=== PATIENT | male | born 1985 | race Hispanic/Latino ===

== ENCOUNTER 2024-04-21 13:15 | Emergency (ER) | payer SELFPAY ==
[2024-04-21 13:17] VITALS: BP 160/91
[2024-04-21 13:22] LABS: Glucose - Point of Care 310 mg/dl (70-99)
--- NOTE | 2024-04-21 13:44 | ED.CVA ---
History of Present Illness
<Rolf Baird Vandana DO - Last Filed: 04/21/24 13:45>
General
Chief Complaint: CVA/TIA Symptoms
Time Seen by Provider: 04/21/24 13:27
<Marleny Durant PA-C - Last Filed: 04/21/24 18:48>
General
Source: patient
Onset of Stroke Symptoms
Onset of symptoms known: Yes
Date of onset of symptoms: 04/18/24
History of Present Illness
History of Present Illness:
39yoM with a history of type 2 diabetes not on medications presenting for evaluation of left facial asymmetry. He first noticed these symptoms 3 days ago and symptoms have been constant since then. He reports a left facial droop as well as
difficulty closing his left eye. He is having some left facial and ear discomfort as well. He had some paresthesias in the left leg previously but denies any currently. He is otherwise asymptomatic and denies any headaches, visual changes,
dizziness, weakness, rashes. He was previously taking metformin but has not taken this in the past 2 years because he has been asymptomatic.
Phy Exam
<Marleny Durant PA-C - Last Filed: 04/21/24 18:48>
General Physical Exam
General Presentation: well appearing and no apparent distress
General age: appears stated age
General Skin: warm and dry
General Habitus: normal
General Mental: alert
General Hydration: appears well hydrated
Eye Exam
Eye Exam: PERRL, EOMI and visual koehler normal
Neurological Exam
Neurological Exam: alert and other (L facial asymmetry noted. Unable to elevate L eyebrow and L lid lag noted. CN 2-12 otherwise intact. PERRL. EOMs intact. 5/5 strength and gross sensation intact in all extremities. Negative drift x4. Normal finger
to nose and heel to barney bilaterally. )
Julia Coma Scale
Eye Opening: Spontaneous
Verbal Response: Oriented
Motor Response: Obeys Commands
GCS Total Score: 15
Skin Exam
Skin Exam: normal color and warm/dry
Psychiatric Exam
Psychiatric Exam: normal mood/affect
Course
<Rolf Ross DO - Last Filed: 04/21/24 13:45>
Orders/Labs/Results
Orders:
Orders
04/21/24 14:02
Lyme Progressive Urgent
Abnormal Lab Results
04/21/24
13:21
POC Glucose 310 H mg/dl
(70-99)
Vital Signs
Initial and Last Documented VS:
Initial Vital Signs
Temp Pulse Resp BP Pulse Ox
99.1 F 75 16 160/91 98
04/21/24 13:17 04/21/24 13:17 04/21/24 13:17 04/21/24 13:17 04/21/24 13:17
Last Documented Vital Signs
Temp Pulse Resp BP Pulse Ox
99.1 F 73 19 160/91 98
04/21/24 13:17 04/21/24 13:56 04/21/24 13:56 04/21/24 13:17 04/21/24 13:56
<Marleny Durant PA-C - Last Filed: 04/21/24 18:48>
Orders/Labs/Results
Orders:
Orders
04/21/24 14:02
Lyme Progressive Urgent
Abnormal Lab Results
04/21/24
13:21
POC Glucose 310 H mg/dl
(70-99)
Vital Signs
Initial and Last Documented VS:
Initial Vital Signs
Temp Pulse Resp BP Pulse Ox
99.1 F 75 16 160/91 98
04/21/24 13:17 04/21/24 13:17 04/21/24 13:17 04/21/24 13:17 04/21/24 13:17
Last Documented Vital Signs
Temp Pulse Resp BP Pulse Ox
99.1 F 73 19 160/91 98
04/21/24 13:17 04/21/24 13:56 04/21/24 13:56 04/21/24 13:17 04/21/24 13:56
<Marleny Durant PA-C - Last Filed: 04/21/24 18:48>
MDM/Problems Addressed
Differential Diagnosis Includes:
39yoM here with L facial droop x 3 days. Facial asymmetry noted on exam which affects the upper face/eyebrow. No other deficits on exam. Differential diagnosis includes but is not limited to: Patton's palsy, Lyme disease, viral infection, doubt CVA
Exam is consistent with [place] palsy. Patient also evaluated by Dr. Ross who agrees. Lyme testing sent. Fingerstick glucose is 310 here. Hx of T2DM noncompliant with metformin. Will prescribe low dose prednisone and Valtrex. Refill provided
for metformin. He was advised to f/u with the free clinic. ED return precautions discussed. He expressed understanding and is agreeable to plan. Patient discharged in stable condition.
<Marleny Durant PA-C - Last Filed: 04/21/24 18:48>
*Critical Care Note
Total Time (30-74mins, 75-104mins- exclusive of procedures): Not Applicable
ED Attending Note
<Rolf Ross DO - Last Filed: 04/21/24 13:45>
ED Attending Note
Patient seen and examined by attending physician: Yes
I performed the substantive portion of visit, reviewed & personally made and approve the management plan that is documented in note by myself or CLAUDIA.: Yes
I performed a history and physical exam of patient and discussed management with resident, I reviewed resident's note and agree with documented findings and plan of care.: Yes
ED Attending Note:
I evaluated the patient bedside. The patient has left upper lid lag and facial asymmetry consistent with Patton's palsy. Although he had some earlier left lower extremity paresthesias, he has excellent strength and no other ongoing extremity
involvement. He is noncompliant with metformin but I still recommend giving at least a lower dose steroid and will also start Valtrex.
-
Portions of this chart may have been created with voice recognition software.� Occasional wrong word or��sound alike� substitutions may have occurred due to the inherent limitations of voice recognition software.
Discharge Plan
Departure
Patient Disposition: Home (Routine Discharge)
Date of Disposition: 04/21/24
Time of Disposition: 14:00
Patient with high blood pressure during this ER visit?: Yes
Discharge Problem:
Left-sided Patton's palsy
Instructions: Patton's Palsy (DC)
Prescriptions:
New
metformin 500 mg tablet
500 mg PO BID Qty: 60 0RF
prednisone 20 mg tablet
20 mg PO DAILY Qty: 7 0RF
valacyclovir [Valtrex] 1 gram tablet
1,000 mg PO Q8H Qty: 21 0RF
Referrals:
[facility] [Provider Group[facility] [Outside]
NONE,* [Family Provider] -
Activity Restrictions/Additional Instructions:
Take prednisone and Valtrex as prescribed. Start taking metformin again. Use an eye patch while you sleep to cover your left eye.
Please follow-up with the clinic. Return to the ER with any new or worsening symptoms.
Interventions
Interventions:
*Risk Screen - Suicide Last Done: 04/21/24 13:17
*Neglect/Abuse Screening Last Done: 04/21/24 13:17
ED- Fall Risk Assessment Last Done: 04/21/24 14:03
*Nursing Disposition Last Done: 04/21/24 14:12
ED- Pulmonary Assessment Last Done: 04/21/24 14:03
ED- Neurological Assessment Last Done: 04/21/24 14:03
ED- Cardiac Assessment Last Done: 04/21/24 14:03
ED Swallowing Screen Last Done: 04/21/24 14:03
Discharge Date and Time
Discharge Date/Time: 04/21/24 14:14
Print Language: CITIZEN OF [place]
[2024-04-25 15:14] LABS: Lyme Antibody Screen, EIA Negative (Negative)
== END 2024-04-21 14:14 | disposition home or self-care (01) ==
LOC: EMR 13:15
PROVIDERS: Physician Assistant; EMERGENCY PHYSICIAN Emergency Medicine
DX: G51.0 Bell's palsy (principal); E11.9 Type 2 diabetes mellitus without complications
CPT/HCPCS: 99282; 82962; 86618

== ENCOUNTER 2024-08-09 04:41 | Inpatient (IN) | payer OTHER, SELFPAY ==
[2024-08-08 23:29] VITALS: BP 158/104
[2024-08-08 23:38] LABS: Glucose - Point of Care 238 mg/dl (70-99)
[2024-08-09] VITALS (18 sets, daily range): BP systolic 109–134; BP diastolic 68–86; BMI 25.2; BMI 28.4
[2024-08-09 00:24] LABS: ALT (SGPT) 19 U/L (0-50); AST (SGOT) 19 U/L (17-59); Albumin 4.4 g/dl (3.5-5.0); Alkaline Phosphatase 108 U/L (38-126); Blood Urea Nitrogen 13 mg/dl (9-20); Calcium 8.7 mg/dl (8.4-10.2); Carbon Dioxide 16 mmol/L (22-30); Chloride 101 mmol/L (98-107); Glucose 240 mg/dl (70-99); Potassium 4.4 mmol/L (3.5-5.1); Sodium 135 mmol/L (135-145); Total Bilirubin 0.7 mg/dl (0.2-1.3); Total Protein 8.3 g/dl (6.3-8.2); eGFR > 60.00
[2024-08-09 01:21] LABS: Red Blood Cell Count 4.87 10^6/uL (4.70-6.10); White Blood Cell Count 13.2 10^3/uL (4.8-10.8)
[2024-08-09 01:23] LABS: Red Cell Dist. Width 13.1 % (11.5-14.5)
[2024-08-09 01:24] LABS: Mean Platelet Volume 12.1 fL (7.4-10.4); Platelet Count 229 10^3/uL (130-400)
[2024-08-09 01:25] LABS: % Basophils 0.2 % (0-2); % Eosinophils 0.2 % (0-6); % Immature Granulocytes 0.5 % (0-0.5); % Lymphocytes 12.7 % (20.5-51.1); % Monocytes 3.9 % (1.7-9.3); % Neutrophils 82.5 % (42.2-75.2); Absolute Immature Granulocytes 0.1 10^3/uL (0-0.05); Absolute Lymphocytes 1.7 10^3/uL (1.2-3.4); Absolute Monocytes 0.5 10^3/uL (0.1-0.6); Absolute Neutrophils 10.9 10^3/uL (1.4-6.5); Nucleated Red Blood Cells % 0.2 % (-)
--- NOTE | 2024-08-09 01:25 | ED.GENMED ---
History of Present Illness
General
Chief Complaint: Abdominal Pain
Source: patient
Exam Limitations: none
Time Seen by Provider: 08/09/24 01:20
History of Present Illness
History of Present Illness:
Patient started 2 to 3 days ago with headache. Developed abdominal pain today. Points to the right side of his abdomen. No nausea or vomiting no fever. Ran out of his diabetic medication months ago. No flank pain dysuria frequency etc. Some
decreased appetite.
Past History
Past History
ED Past Medical History: NIDDM
Review of Systems
Review of Systems
All Other Systems: Not applicable
Constitutional: Denies fever or chills
Respiratory: Reports no symptoms
Cardiac: Reports no symptoms
: Reports no symptoms
Phy Exam
Physical Exam
Physical Exam:
GENERAL: Alert and oriented in no apparent distress
EYE: Orbits normal.
NECK: Supple, no significant adenopathy.
ENT: Pharynx without erythema
CARDIAC: Regular rate and rhythm without any obvious murmurs.
LUNGS: Clear breath sounds,normal
ABDOMEN: Soft, mild right upper quadrant/mild right lower quadrant tenderness. No rebound or guarding no mass or hernia. No CVA tenderness
NEUROLOGICAL: Alert and oriented , grossly non-focal
SKIN: Warm and dry, no rash or lesion, no discoloration, skin intact.
MUSCULOSKELETAL: No edema,no deformity.Good color
PSYCH: Normal and appropriate interaction.
Course
Orders/Labs/Results
Orders:
Orders
08/08/24 23:33
Accucheck Once [Bedside Glucose Monitoring-ONCE] As Directed
08/08/24 23:40
B-Hydroxybutyrate Urgent
Comment: ADD ON
Complete Blood Count/With Diff Urgent
Comprehensive Metabolic Panel Urgent
Lipase Urgent
Comment: ADDED
08/09/24 01:21
Add On- LAB Urgent
Tests Added?: beta hydroxybutrate
08/09/24 01:25
CT Abd/Pel (IV only)-DH only Urgent
Comment:
Reason For Exam: Right lower quadrant abdominal pain
0.9% Sodium Chloride 1000 ml [Nss] 1,000 ml IV BOLUS
US Abdomen Limited Urgent
Comment:
Reason For Exam: Right upper quadrant abdominal pain
08/09/24 01:54
COVID-19 Antigen Urgent
Source: Nasal Swab
Urinalysis Reflex To Culture Urgent
Date Specimen was Collected: 08/09/24
Time Specimen was Collected: 01:43
Urine Microscopic Reflex Cult Urgent
Influenza A+B Rapid Molecular Urgent
CAROLE Source: Nasal Swab
Specimen Description:
Urine Culture Urgent
CAROLE Source: U
Specimen Description:
Date Specimen was Collected: 08/09/24
Time Specimen was Collected: 01:43
08/09/24 03:14
Add On- LAB Urgent
Tests Added?: lipase
08/09/24 03:18
0.9% Sodium Chloride 1000 ml [Nss] 1,000 ml IV BOLUS
08/09/24 04:23
Admit/Transfer Patient As Directed
Co-Sign Provider:
Level of Care: Inpatient admission
Assign to:: IMU- Intermediate Care
Physician / Group: hospitalist
Diagnosis: pancreatitis
Reason for Hospitalization: pancreatitis
Expected length of stay greater than two midnights?: Yes
ELOS- Estimated Length of Stay in days: 2
I certify the patient meets the requirements for IP care: Yes
08/09/24 04:24
PRN Pain Medication Management As Directed
May give lesser potent ordered pain med per pt: Yes
preference::
Protocol:: Medication orders for pain may be administered in a
manner that supports deferring to patient preference
when the pt is:
- Requesting an ordered lesser potent pain medication.
Least to most potent pain medications are defined
as: acetaminophen < NSAID < tramadol < opioids
(morphine, oxycodone, hydromorphone).
- Requesting a lesser dose of the same medication IF
ORDERED.
- Requesting a less intrusive route of administration
if both routes are prescribed by the provider (PO <
IV).
08/09/24 04:25
Code Status As Directed
Resuscitation Status: Full Code
08/09/24 Breakfast
Clear Liquid
At Your Request: Full Participation
08/09/24 07:05
Acetaminophen [Tylenol] 650 mg PO Q6HPRN PRN
HYDROmorphone [Dilaudid] 0.5 mg IV Q4HPRN PRN
Ketorolac [Toradol] 15 mg IV Q6HPRN PRN
Ondansetron Injectable [Zofran] 4 mg IV Q6HPRN PRN
08/09/24 07:05
Consult Notification Routine
Specialty to Notify: Gastroenterology
Date consulting provider notified: 08/09/24
Time consulting provider notified: 07:30
Notified:: Provider
Comment: via TT
GASTROINTESTINAL CONSULT Routine
Consulting Provider: Adele Mata
Was physician already notified: No
Reason for consult: acute pancreatitis with unknown etiology
Activity As Directed
Activity Level: With Assistance
Intake/ Output As Directed
Frequency: Per unit guidelines
Notify MD As Directed
Notify physician if: Nurse to contact provider when glucose reaches 250 to obtain orders for D5 0.45 NaCl
Vital Signs As Directed
Frequency: Per unit guidelines
DX Deep Vein Thrombosis Video Routine
08/09/24 18:00
Enoxaparin Sodium [Lovenox] 40 mg SC QPM
Abnormal Lab Results
08/08/24 08/08/24 08/09/24
23:37 23:40 01:54
WBC 13.2 H 10^3/uL
(4.8-10.8)
MPV 12.1 H fL
(7.4-10.4)
Abs Immat Gran (auto) 0.1 H 10^3/uL
(0-0.05)
Absolute Neuts (auto) 10.9 H 10^3/uL
(1.4-6.5)
Neutrophils % 82.5 H %
(42.2-75.2)
Lymphocytes % 12.7 L %
(20.5-51.1)
Carbon Dioxide 16 L mmol/L
(22-30)
Creatinine 0.5 L mg/dL
(0.7-1.3)
Glucose 240 H mg/dl
(70-99)
Total Protein 8.3 H g/dl
(6.3-8.2)
Lipase 451 H U/L
(23-300)
Urine Ketones 3+ A
(Negative)
Urine Bacteria (Reflex) Many A
(Negative)
Urine Glucose 3+ A
(Negative)
Urine Albumin (Reflex) 1+ A
(Neg - Trace)
B-Hydroxybutyrate 1.30 H mmol/L
(0.02-0.27)
POC Glucose 238 H mg/dl
(70-99)
08/08/24 23:40
08/08/24 23:40
Vital Signs
Initial and Last Documented VS:
Initial Vital Signs
Temp Pulse Resp BP Pulse Ox
97.8 F 96 20 158/104 99
08/08/24 23:29 08/08/24 23:29 08/08/24 23:29 08/08/24 23:29 08/08/24 23:29
Last Documented Vital Signs
Temp Pulse Resp BP Pulse Ox
98.9 F 96 17 128/83 96
08/13/24 12:30 08/13/24 15:00 08/13/24 09:00 08/13/24 14:05 08/13/24 09:45
MDM/Problems Addressed
Differential Diagnosis Includes:
Differential would include gallbladder, appendicitis, DKA although unlikely, viral syndrome. Workup in progress
*Pulse Oximetry
Patient hypoxic: no
*Critical Care Note
Total Time (30-74mins, 75-104mins- exclusive of procedures): Not Applicable
Data Reviewed
Review of Other/Old Records Reveals: Labs
ED Attending Note
-
Portions of this chart may have been created with voice recognition software.� Occasional wrong word or��sound alike� substitutions may have occurred due to the inherent limitations of voice recognition software.
Discharge Plan
Departure
Patient Disposition: Admit
Date of Disposition: 08/09/24
Time of Disposition: 03:18
Presentation/result/management discussed w/ accepting MD/DO: Hospitalist
Discharge Problem:
Pancreatitis, Possible mild DKA
Interventions
Interventions:
*Risk Screen - Suicide Last Done: 08/09/24 01:11
*General Assessment Last Done: 08/09/24 01:11
*Neglect/Abuse Screening Last Done: 08/09/24 01:11
ED- Fall Risk Assessment Last Done: 08/09/24 08:10
*ED COVID-19 Vaccine History Last Done: 08/09/24 01:11
*Nursing Disposition Last Done: 08/09/24 13:58
[facility] Assessment Last Done: 08/09/24 08:10
ED- Neurological Assessment Last Done: 08/09/24 08:10
Discharge Date and Time
Discharge Date/Time: 08/09/24 13:45
[2024-08-09 01:28] LABS: Hematocrit 41.6 % (39.0-52.0); Hemoglobin 14.7 g/dL (13.0-18.0); Mean Corp Hgb Conc. 35.3 g/dL (33.0-37.0); Mean Corpuscular Hgb 30.2 pg (27.0-31.0); Mean Corpuscular Volume 85.4 fL (80.0-94.0)
[2024-08-09] MEDS: NSS 1000 IV ×2 (01:52→03:24)
[2024-08-09 02:06] LABS: Urine Albumin 1+ (Neg - Trace); Urine Bilirubin Negative (Negative); Urine Character Clear (Clear); Urine Color Yellow; Urine Glucose 3+ (Negative); Urine Ketone 3+ (Negative); Urine Leukocyte Negative (Negative); Urine Nitrite Negative (Negative); Urine Occult Blood Negative (Negative); Urine Specific Gravity 1.025 (<1.030); Urine Urobilinogen Negative (Neg - 1+)
[2024-08-09 02:15] LABS: Urine Amorphous Seen; Urine Granular Cast 0-2 /LPF (0); Urine Squamous Cell 16-20 /LPF (Few)
[2024-08-09 02:16] LABS: Urine Bacteria Many (Negative); Urine Mucus Moderate; Urine Red Blood Cell 0-2 /HPF (0-2)
[2024-08-09 02:19] LABS: COVID-19 Antigen Negative (Negative)
[2024-08-09 03:33] LABS: Lipase 451 U/L (23-300)
--- NOTE | 2024-08-09 04:11 | HPS.HSE ---
Family Physician
-
Family Physician: * NONE
Chief Complaint
-
Abdominal pain.
History of Present Illness
This is a 39-year-old male with past medical history of diabetes not currently on any medications due to inability to obtain who presents to the emergency department with onset of abdominal pain today.
Patient reports that he had headache starting about 5 days ago pointing to the confucianism the frontal area and behind his eyes. He denies any nasal congestion. He denies any rhinorrhea sore throat cough or wheezing. He denies any fevers or chills.
He states that the abdominal pain developed today and localized to the right upper quadrant. Has been no fevers or chills. He denies any vomiting denies nausea. He denies any urinary symptoms. He is reporting some decreased p.o. intake.
Patient was recently seen in the emergency department for your diabetes. He was diagnosed with diabetes several years ago. He was was placed on metformin at that time but has ran out due to inability to follow-up with a provider and inability to
refill the prescription.
In the emergency department he was afebrile, blood pressure was normal at 1 130/80 with a pulse of 88 satting 98% on room air. He had a white count of 13,000 but CBC was otherwise unremarkable. Electrolytes were stable except for a bicarb of 16,
BUN/creatinine with normal glucose was 240. The anion gap was 18. He does have elevated with hydroxybutyrate. UA was positive for ketones. LFTs were normal, lipase was elevated over 400. CT of the abdomen and pelvis shows mild inflammatory
stranding surrounding the pancreas compatible with pancreatitis. No significant other abnormalities noted, no stones visualized in the gallbladder or bile duct.
Abdominal ultrasound shows that the liver and gallbladder and visualized biliary system were unremarkable. No gallstones or sonographic Alexis sign.
Medical History
Past Medical History
Past Medical History: Reports NIDDM
Past Surgical History: Reports None
Social History
Tobacco: Non-smoker
Alcohol: None
Drug: None
Personal:
Living: With Family
Employment: Employed
Family History
Family History: Not pertinent
Allergies / Home Medications
Allergies reflects when Allergies were last updated in [facility].
Home Medications with original date entered in [facility]
Allergy/Medication List:
Allergies
Allergy/AdvReac Type Severity Reaction Status Date / Time
No Known Allergies Allergy Unverified 04/21/24 13:20
Home Medications
metformin 500 mg tablet 500 mg PO BID #60 tabs 04/21/24
prednisone 20 mg tablet 20 mg PO DAILY #7 tabs 04/21/24
valacyclovir 1 gram tablet (Valtrex) 1,000 mg PO Q8H #21 tabs 04/21/24
Review of Systems
-
History Source: Patient
Constitutional: Reports No Symptoms
EENT: Reports No Symptoms
Respiratory: Reports No Symptoms
Cardiac: Reports No Symptoms
Abdomen/GI: Reports Abdominal Pain
: Reports No Symptoms
Musculoskeletal: Reports No Symptoms
Skin: Reports No Symptoms
Neurological: Reports Headache
Endocrine: Reports No Symptoms
Hematologic/Lymphatic: Reports No Symptoms
Psych: Reports No Symptoms
Physical Exam
Vital Signs
Vital Signs
Temp Pulse Resp BP Pulse Ox
97.8 F 78 24 117/77 97
08/08/24 23:29 08/09/24 04:00 08/09/24 04:00 08/09/24 04:00 08/09/24 04:00
Physical Exam
General: Well Developed, Well Nourished, No Apparent Distress and Comfortable
HEENT: NormoCephalic, Anicteric, Moist mucous membranes and Atraumatic
Respiratory: Clear
Cardiac: S1/S2 and Regular Rhythm
GI: Soft, Non Distended, Normal Bowel Sounds and Tender
Rectal: Deferred by Provider
Genito-urinary: Deferred by me
Musculoskeletal: No Clubbing, No Cyanosis and No Edema
Neuro: AO x 3 and Nonfocal/grossly intact
Psych: Calm
Laboratory Results
-
08/08/24 23:40
08/08/24 23:40
Laboratory Results
Total Bilirubin 0.7 mg/dl (0.2-1.3) 08/08/24 23:40
AST 19 U/L (17-59) 08/08/24 23:40
ALT 19 U/L (0-50) 08/08/24 23:40
Alkaline Phosphatase 108 U/L (38-126) 08/08/24 23:40
Lipase 451 U/L (23-300) H 08/08/24 23:40
Data Reviewed
-
CT Scan: Report Reviewed by me
Lab Data: Labs Reviewed by me
Old Records: Reviewed
Impression/Plan
-
IMPRESSION:
39-year-old with pancreatitis and mild DKA.
PLAN:
Pancreatitis - No etoh, no gall stones, billiary ductal dilation or abnormal lfts. No h/o gallstones. No medications or trauma. Non-insulin dependent diabetes. Mildly fatty liver
- etiology uncertain as he denies etoh and has no evidence of gallstones, trauma, procedures or medications. No significant anatomic findings. No family hx. ?viral, aip versus anatomic.
- check triglycerides, blood samples appear lipid enriched.
- pain control, iv fluids and antiemetics
- may need further investigation, no known family hx, consider EUS or MRCP. GI consultation
DKA - Mild DKA. Was not taking metformin. GAP 18, + urinary ketones and elevated beta hydroxybutyrate. No significant dehydration. Improved after IV fluids and gap closed
- sliding scale insulin
- restart metformin after 48 hours when tolerating po and on discharge with follow up in diabetic clinic
- no need for insulin gtt for dka, but may need insulin for hypertriglycerides.
- admit placed for imu for now pending trig levels
DVT PPx - lovenox sq
Code status - full code
[2024-08-09 05:21] LABS: Glucose - Point of Care 179 mg/dl (70-99)
[2024-08-09 05:55] LABS: Hematocrit 35.4 % (39.0-52.0); Hemoglobin 13.1 g/dL (13.0-18.0); Mean Corpuscular Hgb 31.9 pg (27.0-31.0); Mean Corpuscular Volume 86.1 fL (80.0-94.0); Mean Platelet Volume 11.4 fL (7.4-10.4); Platelet Count 167 10^3/uL (130-400); Red Blood Cell Count 4.11 10^6/uL (4.70-6.10); Red Cell Dist. Width 13.2 % (11.5-14.5); White Blood Cell Count 10.1 10^3/uL (4.8-10.8)
[2024-08-09 06:25] LABS: ALT (SGPT) 16 U/L (0-50); AST (SGOT) 24 U/L (17-59); Albumin 3.7 g/dl (3.5-5.0); Alkaline Phosphatase 77 U/L (38-126); Blood Urea Nitrogen 11 mg/dl (9-20); Calcium 7.7 mg/dl (8.4-10.2); Carbon Dioxide 20 mmol/L (22-30); Chloride 105 mmol/L (98-107); Direct Bilirubin 0.6 mg/dl (0.0-0.4); Glucose 176 mg/dl (70-99); Sodium 135 mmol/L (135-145); Total Protein 6.9 g/dl (6.3-8.2); eGFR > 60.00
[2024-08-09 07:17] LABS: Triglycerides > 2625 mg/dl (10-149)
[2024-08-09] MEDS: LR 1000 IV (08:07)
[2024-08-09 09:01] LABS: Glucose - Point of Care 202 mg/dl (70-99)
[2024-08-09] MEDS: NOVOLOG FLEXPEN-LOW RESISTANCE 2 UNITS SC (09:38)
[2024-08-09] MEDS: TORADOL 15 MG IV ×2 (09:45→21:10)
[2024-08-09] MEDS: NOVOLIN R INSULIN INFUSION 100 IV ×2 (10:30→20:42)
[2024-08-09 10:32] LABS: Glucose - Point of Care 292 mg/dl (70-99)
[2024-08-09] MEDS: D5LR 1000 IV (10:36)
[2024-08-09 11:37] LABS: Glucose - Point of Care 248 mg/dl (70-99)
--- NOTE | 2024-08-09 11:53 | CON.GI ---
Consultation
-
Date/Time Consultation Requested: 08/09/2024
Date/Time Consultation Performed: 08/09/2024
Requesting Provider: Hospitalist
Performing Provider: Cholo XAVIER
Reason for Consultation: Pancreatitis
Medical History
Chief Complaint / HPI
Chief Complaint: Abdominal pain
History of Present Illness:
39-year-old male with history of diabetes not on any treatment at present admitted to ED complaining of right upper quadrant abdominal pain for 1 day. No associated nausea or vomiting. No pain radiation. No fever or chills. In ED labs
leukocytosis with WBC 13,000. Liver tests were normal. Lipase was 451. CT abdomen/pelvis with IV only suggestive of pancreatitis/fatty liver
Past Medical History
Past Medical History: Other (DM)
Past Surgical History: None
Social History
Tobacco: Non-Smoker
Alcohol: None
Drug: None
Allergies / Home Medications
Allergy/AdvReac Type Severity Reaction Status Date / Time
No Known Allergies Allergy Unverified 04/21/24 13:20
�Medication �Instructions �Recorded
metformin 500 mg tablet 500 mg PO BID #60 tabs 04/21/24
Review of Systems
-
All other systems: A 12 pt ROS was Negative except as stated above in HPI
Vital Signs
Temp Pulse Resp BP Pulse Ox
99.2 F 87 23 121/73 96
08/09/24 08:10 08/09/24 11:00 08/09/24 11:00 08/09/24 11:00 08/09/24 08:15
Physical Exam
Exam
General: Well Developed, Well Nourished and No Apparent Distress
Respiratory: Clear
Cardiac: S1/S2
GI: Soft, Non Distended and Tender (Mild epigastric tenderness on deep palpation)
Neuro: AO x 3
Results
WBC Cancelled 08/09/24 08:00
Hgb Cancelled 08/09/24 08:00
Hct Cancelled 08/09/24 08:00
MCV Cancelled 08/09/24 08:00
Plt Count Cancelled 08/09/24 08:00
Absolute Neuts (auto) 10.9 10^3/uL (1.4-6.5) H 08/08/24 23:40
Sodium 135 mmol/L (135-145) 08/09/24 05:43
Potassium 4.0 mmol/L (3.5-5.1) 08/09/24 09:31
Chloride 105 mmol/L (98-107) 08/09/24 05:43
Carbon Dioxide 20 mmol/L (22-30) L 08/09/24 05:43
BUN 11 mg/dl (9-20) 08/09/24 05:43
Creatinine 0.4 mg/dL (0.7-1.3) L 08/09/24 05:43
Calcium 7.7 mg/dl (8.4-10.2) L 08/09/24 05:43
Total Bilirubin 1.0 mg/dl (0.2-1.3) 08/09/24 05:43
AST 24 U/L (17-59) 08/09/24 05:43
ALT 16 U/L (0-50) 08/09/24 05:43
Alkaline Phosphatase 77 U/L (38-126) 08/09/24 05:43
Lipase 451 U/L (23-300) H 08/08/24 23:40
Diagnostic Image Results:
Ultrasound abdomen 08/09/2024�normal. No biliary dilatation
CT abdomen/pelvis 08/09/2024
IMPRESSION:
1). Pancreatitis
2). Hepatomegaly with diffuse fatty infiltration of the liver
Prior GI Procedures:
EGD: none
Colonoscopy: none
Assessment / Plan
-
39-year-old male with history of diabetes currently not on any medication is admitted with right upper quadrant abdominal pain for 1 day.
-- Acute pancreatitis-secondary to hypertriglyceridemia ( TG > 2625 ). First episode. ( No ETOH/ LFT normal / Imaging no biliary dilatation )
-- DM/ DKA ( not on Rx for DM because of no insurance)
-- Fatty liver - likely secondary to MASH
plan
N.p.o.
Continue insulin drip until triglyceride < 500
Continue IV fluid
Pain management as per medical team
Pharmacological treatment for triglyceridemia to be initiated once patient can tolerate oral intake
Discussed with patient that patient needs to be on dietary fat restriction and pharmacological treatment for triglyceridemia in the future to prevent recurrence of pancreatitis
Patient requires follow-up with PCP on discharge for management of diabetes/hyperlipidemia - medical team/ professor of social work to arrange follow up
plan discussed with hospitalist
Total Time Spent with Patient (in minutes): 55
-
-
Thank you for consultation and allowing me to participate in the patient's care. Please call the quality control operator GI physician during the after hours with any questions or concerns.
--- NOTE | 2024-08-09 12:41 | W.PN.HOSP.TC ---
Today's Communication/Plan
-
Insulin drip
BMP every 4 hours, TG level every 8 hours
D5LR, replete K and Phos as needed
TG goal <500
Follow-up A1c
CLD for now
Assessment / Plan
Assessment / Plan
#Acute pancreatitis
#Hypertriglyceridemia
-Presented with abdomen pain, elevated lipase, CT with signs of pancreatitis, TG >2000
-Unclear cause for his elevated TG level, denies alcohol use, denies family history of high cholesterol
-Has remained hemodynamically stable, relatively low modified Remigio score
-No signs of biliary disease or gallstones on imaging
-GI following
Plan
-Start insulin drip at 7 units/h, trend BMP Q4H, TG Q8H
-Plan to discontinue insulin drip when TG <500
-Replete potassium and phosphorus as needed for protocol
-Start D5 LR for maintenance fluids to prevent hypoglycemia
-Hematocrit goal <44%, trend BUN
-Initiate statin therapy, consider fenofibric acid
#Mild DKA
#H/O NIDDM
-No recent A1c; no history of microvascular disease states
-Home medications included metformin twice daily, nonadherent due to no insurance
-Presented with hyperglycemia, AGMA, elevated BHB consistent with mild DKA versus HHS
Plan
-Started on insulin drip as above, will DC at TG < 500
-Order A1c to assess need for standing insulin regimen
-Plan to transition to Lantus 10 units when insulin drip done
-Plan to resume metformin +/- additional agents
-Statin as above for ASCVD prevention
DVT prophylaxis: Lovenox
Diet: CLD, ADAT
CODE STATUS: Full
Anticipated Discharge: 24 - 48 hours
Subjective/Interval History
-
Date of Service: August 09, 2024
Seen and examined at the bedside. No acute events reported overnight. AFVSS this
Morning triglycerides did come back significantly elevated >2000. Patient denies history of hyperlipidemia, family history of hypertriglyceridemia, recent alcohol use
States he is feeling better but still has abdomen pain. Denies any new complain
Objective Data
-
Labs:
Laboratory Results
08/08/24 08/09/24 08/09/24
23:40 05:43 08:00
WBC 13.2 H 10.1 Cancelled
Hgb 14.7 13.1 Cancelled
Hct 41.6 35.4 L Cancelled
Plt Count 229 167 D Cancelled
Sodium 135
Potassium
Chloride 105
Carbon Dioxide 20 L
BUN 11
Creatinine 0.4 L
Glucose 176 H
Calcium 7.7 L
Total Bilirubin 1.0
AST 24
ALT 16
Alkaline Phosphatase 77
08/09/24 08/09/24 08/09/24
08:52 09:31 12:00
WBC
Hgb
Hct
Plt Count
Sodium Pending
Potassium Cancelled 4.0 Pending
Chloride Pending
Carbon Dioxide Pending
BUN Pending
Creatinine Pending
Glucose Pending
Calcium Pending
Total Bilirubin
AST
ALT
Alkaline Phosphatase
08/09/24 08/09/24
16:00 20:00
WBC
Hgb
Hct
Plt Count
Sodium Pending Pending
Potassium Pending Pending
Chloride Pending Pending
Carbon Dioxide Pending Pending
BUN Pending Pending
Creatinine Pending Pending
Glucose Pending Pending
Calcium Pending Pending
Total Bilirubin
AST
ALT
Alkaline Phosphatase
Vital Signs:
Vital Signs
Temp Pulse Resp BP Pulse Ox
99.2 F 87 23 121/73 96
08/09/24 08:10 08/09/24 11:00 08/09/24 11:00 08/09/24 11:00 08/09/24 08:15
Review of Systems
-
History Source: Patient
All other systems: Reviewed and negative
Physical Exam
-
General: Well Developed, Well Nourished, No Apparent Distress and Comfortable
HEENT: Normocephalic, Atraumatic, Moist Mucous Membranes and Anicteric
Respiratory: Clear to Auscultation and Non Labored Respirations
Cardiac: Regular Rhythm and S1/S2; Negative Murmur, Rub or Gallop
GI: Soft, Nondistended, Normal Bowel Sounds and Tender (Mild, mid right abdomen; no peritoneal sign)
Musculoskeletal: No Clubbing, No Cyanosis and No Edema
Skin: Warm and Dry; Negative Rash
Neuro: AO x 3 and Nonfocal/Grossly Intact; Negative Tremors
Psych: Calm
Data Reviewed
-
Labs: Labs Reviewed by me, Discussed with Physician (Gastroenterology) and Discussed with Patient
[2024-08-09 12:44] LABS: Glucose - Point of Care 208 mg/dl (70-99)
[2024-08-09 13:01] LABS: Blood Urea Nitrogen 11 mg/dl (9-20); Calcium 7.9 mg/dl (8.4-10.2); Carbon Dioxide 23 mmol/L (22-30); Chloride 102 mmol/L (98-107); Estimated Creatinine Clearance > 125 ml/min; Glucose 204 mg/dl (70-99); Phosphorus 2.5 mg/dl (2.5-4.5); Potassium 3.5 mmol/L (3.5-5.1); Sodium 135 mmol/L (135-145); eGFR > 60.00
--- NOTE | 2024-08-09 13:10 | EDRN ---
Report called to RN. Camille Hogue Pharmacist tristan texting for potassium replacement.
[2024-08-09 14:06] LABS: Glucose - Point of Care 175 mg/dl (70-99)
[2024-08-09 14:25] LABS: Glycohemoglobin (HgbA1c) 12.8 % (4.0-5.6)
--- NOTE | 2024-08-09 14:30 | PTCARENOTE ---
Patient received from the ED. Patient was able to ambulate to the bed from the stretcher. Currently has Fluids and Insulin gtt running at 7mL/hr per order with no titration as it is for Triglyceride level. Admission questions done. Oriented to
room. Skin assessment performed, scabbed area on back on head. Call salamanca in reach.
[2024-08-09] MEDS: KCL 270 MEQ IV (14:48)
[2024-08-09 15:13] LABS: Glucose - Point of Care 122 mg/dl (70-99)
[2024-08-09 16:15] LABS: Glucose - Point of Care 176 mg/dl (70-99)
[2024-08-09 17:03] LABS: Blood Urea Nitrogen 9 mg/dl (9-20); Calcium 7.9 mg/dl (8.4-10.2); Carbon Dioxide 24 mmol/L (22-30); Chloride 103 mmol/L (98-107); Estimated Creatinine Clearance > 125 ml/min; Glucose 139 mg/dl (70-99); Phosphorus 3.5 mg/dl (2.5-4.5); Sodium 135 mmol/L (135-145); eGFR > 60.00
[2024-08-09] MEDS: D5LR IV (17:03)
[2024-08-09 17:14] LABS: Glucose - Point of Care 112 mg/dl (70-99)
[2024-08-09 17:28] LABS: Triglycerides 2450 mg/dl (10-149)
[2024-08-09] MEDS: LIPITOR 40 MG PO (18:00)
[2024-08-09] MEDS: LOVENOX 40 MG SC (18:00)
[2024-08-09] MEDS: KCL 1010 MEQ IV (18:11)
[2024-08-09 18:16] LABS: Glucose - Point of Care 61 mg/dl (70-99)
[2024-08-09 19:03] LABS: Glucose - Point of Care 196 mg/dl (70-99)
[2024-08-09 20:12] LABS: Glucose - Point of Care 192 mg/dl (70-99)
[2024-08-09 20:38] LABS: Blood Urea Nitrogen 9 mg/dl (9-20); Calcium 8.2 mg/dl (8.4-10.2); Carbon Dioxide 23 mmol/L (22-30); Chloride 103 mmol/L (98-107); Estimated Creatinine Clearance > 125 ml/min; Glucose 194 mg/dl (70-99); Phosphorus 3.4 mg/dl (2.5-4.5); Potassium 4.3 mmol/L (3.5-5.1); Sodium 134 mmol/L (135-145); eGFR > 60.00
[2024-08-09 21:10] LABS: Glucose - Point of Care 165 mg/dl (70-99)
[2024-08-09 22:13] LABS: Glucose - Point of Care 169 mg/dl (70-99)
--- NOTE | 2024-08-09 22:17 | PTCARENOTE ---
assumed care of patient from previous RN. Patient is Aox3 and NSR on monitor. Insulin gtt running at 7 units, Q1 hour glucose check. Patient reported 7/10 abdominal pain, see MAR. Assessment and VS as documented. Call salamanca in reach.
[2024-08-09 23:13] LABS: Glucose - Point of Care 141 mg/dl (70-99)
[2024-08-10] VITALS (11 sets, daily range): BP systolic 107–133; BP diastolic 66–79
[2024-08-10 00:09] LABS: Glucose - Point of Care 122 mg/dl (70-99)
[2024-08-10] MEDS: KCL 1010 MEQ IV ×3 (00:12→14:46)
[2024-08-10 02:00] LABS: Blood Urea Nitrogen 7 mg/dl (9-20); Calcium 8.2 mg/dl (8.4-10.2); Carbon Dioxide 24 mmol/L (22-30); Chloride 105 mmol/L (98-107); Estimated Creatinine Clearance > 125 ml/min; Glucose 99 mg/dl (70-99); Phosphorus 3.3 mg/dl (2.5-4.5); Potassium 3.8 mmol/L (3.5-5.1); Sodium 137 mmol/L (135-145); eGFR > 60.00
[2024-08-10 02:08] LABS: Glucose - Point of Care 119 mg/dl (70-99)
--- NOTE | 2024-08-10 02:08 | DOWNTIME ---
There was a [employer]ing [employer] Executive Downtime on 08/10/2024 from 0100 to 08/10/2023 at 0205 . Downtime documentation of patient's care, including medication administrations, has been reconciled in the electronic record per guidelines. Refer to the
patient's paper chart under the miscellaneous tab to see printed paper medication records and downtime forms.
[2024-08-10 02:14] LABS: Triglycerides 1944 mg/dl (10-149)
[2024-08-10 03:22] LABS: Glucose - Point of Care 121 mg/dl (70-99)
[2024-08-10 04:41] LABS: Glucose - Point of Care 88 mg/dl (70-99)
[2024-08-10] MEDS: TYLENOL 650 MG PO ×2 (04:42→20:06)
[2024-08-10 04:47] LABS: % Basophils 0.2 % (0-2); % Eosinophils 1.2 % (0-6); % Immature Granulocytes 0.2 % (0-0.5); % Lymphocytes 25.5 % (20.5-51.1); % Monocytes 6.6 % (1.7-9.3); % Neutrophils 66.3 % (42.2-75.2); Absolute Eosinophils 0.1 10^3/uL (0-0.7); Absolute Lymphocytes 2.2 10^3/uL (1.2-3.4); Absolute Monocytes 0.6 10^3/uL (0.1-0.6); Absolute Neutrophils 5.7 10^3/uL (1.4-6.5); Hematocrit 33.7 % (39.0-52.0); Hemoglobin 12.5 g/dL (13.0-18.0); Mean Corp Hgb Conc. 37.1 g/dL (33.0-37.0); Mean Corpuscular Hgb 31.1 pg (27.0-31.0); Mean Corpuscular Volume 83.8 fL (80.0-94.0); Mean Platelet Volume 11.6 fL (7.4-10.4); Nucleated Red Blood Cells % 0.2 % (-); Platelet Count 183 10^3/uL (130-400); Red Blood Cell Count 4.02 10^6/uL (4.70-6.10); Red Cell Dist. Width 13.2 % (11.5-14.5); White Blood Cell Count 8.7 10^3/uL (4.8-10.8)
[2024-08-10 05:16] LABS: HDL Cholesterol 33 mg/dl
[2024-08-10 05:41] LABS: Total Cholesterol 650 mg/dl (50-199)
[2024-08-10 05:44] LABS: Blood Urea Nitrogen 7 mg/dl (9-20); Calcium 8.1 mg/dl (8.4-10.2); Carbon Dioxide 25 mmol/L (22-30); Chloride 104 mmol/L (98-107); Estimated Creatinine Clearance > 125 ml/min; Glucose 81 mg/dl (70-99); Phosphorus 3.3 mg/dl (2.5-4.5); Potassium 3.8 mmol/L (3.5-5.1); Sodium 137 mmol/L (135-145); eGFR > 60.00
[2024-08-10 05:45] LABS: Triglyceride 1811 mg/dl (10-149)
[2024-08-10 06:11] LABS: LDL Cholesterol, Direct 84 mg/dl
[2024-08-10 06:30] LABS: Glucose - Point of Care 75 mg/dl (70-99)
[2024-08-10] MEDS: TORADOL 15 MG IV (07:13)
[2024-08-10 07:17] LABS: Glucose - Point of Care 95 mg/dl (70-99)
--- NOTE | 2024-08-10 07:58 | PTCARENOTE ---
Patient received from mold shifter. Patient resting comfortably in bed. AAO,VSS. Telugu speaking but can communicate in Latvian. No events noted overnight. Complaints of intermittent pain in upper right quadrant, see MAR. Insulin gtt remains
at 7mL/hr for Triglycerides, Q1 accucheck. LR D5 with 20meq of K through IV. No tests scheduled at this time. Call salamanca in reach.
[2024-08-10 08:20] LABS: Glucose - Point of Care 73 mg/dl (70-99)
[2024-08-10 09:10] LABS: Glucose - Point of Care 88 mg/dl (70-99)
[2024-08-10 09:15] LABS: Glucose - Point of Care 150 mg/dl (70-99)
[2024-08-10 09:43] LABS: Blood Urea Nitrogen 6 mg/dl (9-20); Calcium 8.5 mg/dl (8.4-10.2); Carbon Dioxide 24 mmol/L (22-30); Chloride 103 mmol/L (98-107); Estimated Creatinine Clearance > 125 ml/min; Glucose 66 mg/dl (70-99); Phosphorus 4.2 mg/dl (2.5-4.5); Potassium 3.8 mmol/L (3.5-5.1); Sodium 135 mmol/L (135-145); eGFR > 60.00
[2024-08-10] MEDS: NOVOLIN R INSULIN INFUSION 100 IV ×2 (10:04→23:27)
[2024-08-10 10:08] LABS: Triglycerides 1537 mg/dl (10-149)
[2024-08-10 10:15] LABS: Glucose - Point of Care 223 mg/dl (70-99)
--- NOTE | 2024-08-10 10:36 | W.PN.HOSP.TC ---
Today's Communication/Plan
-
Continue insulin drip until TG <500
BMP every 4 hours, TG level every 8 hours
Continue D5 LR with KCl additive
DM consult, consider Lantus 15 units and NovoLog 5 units with meals after drip
Start fenofibric acid in addition to statin
Assessment / Plan
Assessment / Plan
#Acute pancreatitis
#Hypertriglyceridemia
-Presented with abdomen pain, elevated lipase, CT with signs of pancreatitis, TG >2000
-Unclear cause for his elevated TG level, denies alcohol use, denies family history of high cholesterol
-Has remained hemodynamically stable, relatively low modified Remigio score
-No signs of biliary disease or gallstones on imaging, without obstructive pattern
-TG improving on insulin drip, down to the low 1000's with improving symptoms
-Currently on D5 LR with KCl additive, potassium and phosphorus 7 stay
-GI following
Plan
-Continue insulin drip with plan to discontinue when TG <500
-Continue to trend BMP Q4, TG Q8 while on insulin drip
-Continue D5 LR with KCl additive
-Hematocrit goal <44%, trend BUN
-Continue statin and start fenofibrate
-Continue with CLD, plan to advance when off of drip
#Mild DKA
#H/O NIDDM
-No recent A1c; no history of microvascular disease states
-Home medications included metformin twice daily, nonadherent due to no insurance
-Presented with hyperglycemia, AGMA, elevated BHB consistent with mild DKA versus HHS
-Blood sugars have improved on insulin drip, have been as low as 70 though normally at goal
-Hemoglobin A1c returned at 12.3%
Plan
-Continue with insulin drip as above
-Transition to Lantus 15 units QD, NovoLog 5 units AC with ISS after drip
-Plan to resume metformin +/- additional agents
-Statin as above for ASCVD prevention
-Carb controlled diet when off drip
-Plan OP microalbumin/creatinine, retinal exam, foot exam
-DM consult
DVT prophylaxis: Lovenox
Diet: CLD, ADAT
CODE STATUS: Full
Anticipated Discharge: 24 - 48 hours
Subjective/Interval History
-
Date of Service: August 10, 2024
Seen and examined at the bedside. No acute events reported overnight. AFVSS this morning
Accu-Cheks did get as low as 70 overnight though no objective hypoglycemia, Accu-Chek 150 most recently. Remains on D5 LR with KCl additive. Potassium and phosphorus has been stable
He states that he feels well, still has some abdomen pain though it is improving. Denies nausea and vomiting, denies fevers or chills or chest pain. Denies dyspnea
No new complaints. Family was at the bedside and updated on plan
Objective Data
-
Labs:
Laboratory Results
08/10/24 08/10/24 08/10/24
00:14 00:50 04:35
WBC 8.7
Hgb 12.5 L
Hct 33.7 L
Plt Count 183
Sodium Cancelled 137 137
Potassium Cancelled 3.8 3.8
Chloride Cancelled 105 104
Carbon Dioxide Cancelled 24 25
BUN Cancelled 7 L 7 L
Creatinine Cancelled 0.4 L 0.4 L
Glucose Cancelled 99 81
Calcium Cancelled 8.2 L 8.1 L
08/10/24 08/10/24
08:09 12:00
WBC
Hgb
Hct
Plt Count
Sodium 135 Pending
Potassium 3.8 Pending
Chloride 103 Pending
Carbon Dioxide 24 Pending
BUN 6 L Pending
Creatinine 0.4 L Pending
Glucose 66 L Pending
Calcium 8.5 Pending
Vital Signs:
Vital Signs
Temp Pulse Resp BP Pulse Ox
98.4 F 81 20 121/72 95
08/10/24 07:05 08/10/24 06:00 08/10/24 06:00 08/10/24 04:00 08/10/24 09:31
I&O
08/09/24 08/10/24 08/11/24
06:59 06:59 06:59
Intake Total 800 / 800 480 / 480
Balance 800 / 800 480 / 480
Review of Systems
-
History Source: Patient
All other systems: Reviewed and negative
Physical Exam
-
General: Well Developed, Well Nourished, No Apparent Distress and Comfortable
HEENT: Normocephalic, Atraumatic, Moist Mucous Membranes and Anicteric
Respiratory: Clear to Auscultation and Non Labored Respirations
Cardiac: Regular Rhythm and S1/S2; Negative Murmur, Rub or Gallop
GI: Soft, Nondistended, Normal Bowel Sounds and Tender (Mild, epigastric and mid right abdomen; no peritoneal signs)
Genito-urinary: No Costovertebral Tender
Musculoskeletal: No Clubbing, No Cyanosis and No Edema
Skin: Warm and Dry; Negative Rash
Neuro: AO x 3 and Nonfocal/Grossly Intact; Negative Tremors
Psych: Calm
Data Reviewed
-
Labs: Labs Reviewed by me, Discussed with Physician (Gastroenterology, DM team), Discussed with Patient and Discussed with Family
[2024-08-10 11:18] LABS: Glucose - Point of Care 134 mg/dl (70-99)
--- NOTE | 2024-08-10 11:29 | W.PN.GI.CBS2 ---
Today's Communication / Plan
-
CLD
Continue insulin drip
Assessment / Plan
-
39-year-old male with history of diabetes currently not on any medication is admitted with right upper quadrant abdominal pain for 1 day.
-- Acute pancreatitis-secondary to hypertriglyceridemia ( TG > 2625 ). First episode. ( No ETOH/ LFT normal / Imaging no biliary dilatation )
-- DM/ DKA ( not on Rx for DM because of no insurance). HbA1C 12.3
-- Fatty liver - likely secondary to MASH
plan
Clear liquid diet. Advance as tolerated to low-fat diet
Continue insulin drip until triglyceride < 500. Triglyceride this a.m. 1537
Continue IV fluid
Pain management as per medical team
Pharmacological treatment for triglyceridemia to be initiated once patient can tolerate oral intake
Discussed with patient that patient needs to be on dietary fat restriction and pharmacological treatment for triglyceridemia in the future to prevent recurrence of pancreatitis
Patient requires follow-up with PCP on discharge for management of diabetes/hyperlipidemia - medical team/ director social service to arrange follow up
Total Time Spent with Patient (in minutes): 35
Subjective
Subjective
Date of Service: August 10, 2024
Feeling better. Mild abdominal discomfort. No nausea or vomiting
Objective
Data Reviewed
Laboratory Data:
Laboratory Results
08/10/24 04:35
Laboratory Results
Phosphorus 4.2 mg/dl (2.5-4.5) 08/10/24 08:09
Total Bilirubin 1.0 mg/dl (0.2-1.3) 08/09/24 05:43
AST 24 U/L (17-59) 08/09/24 05:43
ALT 16 U/L (0-50) 08/09/24 05:43
Alkaline Phosphatase 77 U/L (38-126) 08/09/24 05:43
Lipase 451 U/L (23-300) H 08/08/24 23:40
Vital Signs and I&O:
Vital Signs
Temp Pulse Resp BP Pulse Ox
98.4 F 82 19 113/66 96
08/10/24 07:05 08/10/24 11:00 08/10/24 11:00 08/10/24 08:00 08/10/24 11:00
I&O
08/09/24 08/10/24 08/11/24
06:59 06:59 06:59
Intake Total 800 / 800 480 / 480
Balance 800 / 800 480 / 480
Physical Exam
Physical Exam
GI: Soft, Non Distended and Non Tender
--- NOTE | 2024-08-10 11:46 | CM ---
CM met with pt, his sister and sister's SO bedside
Pt resides with his spouse and 4 minor children (14, 11, 8, and 4 y/o)
They reside in a 1st floor apartment
Pt is uninsured and does not have a BGM at home nor takes medications
Pt has no PCP
Discussion with Dr. Moncada- anticipate need for insulin on dc
[facility]
Provided [facility] brochure and application in his preferred language of [place]
Also provided info on [facility] diabetes low-cost [employer] meds and supplies
Will await outcome of DM Educator consult
Discharge Disposition- home
[2024-08-10 12:15] LABS: Glucose - Point of Care 86 mg/dl (70-99)
[2024-08-10 13:19] LABS: Glucose - Point of Care 76 mg/dl (70-99)
--- NOTE | 2024-08-10 14:12 | PN.DE.MGMTRT ---
Insulin Management
- -
08/10/2024 Diabetes Management Consult
Patient admitted 08/09 with abdominal pain found to have pancreatitis, triglycerides >2625, and mild DKA, GAP 18 glucose 240. PMH type 2 diabetes. Was prescribed metformin in the past but stopped some time ago due to inability to pay for medical
care. A1C is 12.8, cr .4, eGFR > 60.
Currently triglycerides are 1537, patient on insulin infusion. Will continue insulin infusion until triglycerides 500 or less.
Will follow.
Diabetes History
- -
Type of Diabetes: 2 requiring insulin
Pre-Admission Diabetes Regimen
08/09/24 08/09/24 08/10/24
16:33 20:09 00:14
Creatinine 0.4 L 0.4 L Cancelled
08/10/24 08/10/24 08/10/24
00:50 04:35 08:09
Creatinine 0.4 L 0.4 L 0.4 L
08/10/24
12:27
Creatinine Cancelled
Lab Results
Hemoglobin A1c 12.8 % (4.0-5.6) H 08/09/24 05:43
Insulin Pump Settings
IP Diabetes Regimen
08/09/24 08/09/24 08/09/24
15:01 16:03 16:33
Glucose 139 H
POC Glucose 122 H 176 H
08/09/24 08/09/24 08/09/24
17:02 18:05 18:51
Glucose
POC Glucose 112 H 61 L 196 H
08/09/24 08/09/24 08/09/24
20:01 20:09 20:58
Glucose 194 H
POC Glucose 192 H 165 H
08/09/24 08/09/24 08/09/24
22:02 23:02 23:57
Glucose
POC Glucose 169 H 141 H 122 H
08/10/24 08/10/24 08/10/24
00:14 00:50 01:05
Glucose Cancelled 99
POC Glucose 88
08/10/24 08/10/24 08/10/24
01:57 03:10 04:30
Glucose
POC Glucose 119 H 121 H 88
08/10/24 08/10/24 08/10/24
04:35 06:19 07:03
Glucose 81
POC Glucose 75 95
08/10/24 08/10/24 08/10/24
08:09 09:02 10:03
Glucose 66 L
POC Glucose 73 150 H 223 H
08/10/24 08/10/24 08/10/24
11:07 12:04 12:27
Glucose Cancelled
POC Glucose 134 H 86
08/10/24
13:06
Glucose
POC Glucose 76
Meal type: Breakfast
Meal type: Lunch
Patient Education
[2024-08-10 14:15] LABS: Glucose - Point of Care 84 mg/dl (70-99)
[2024-08-10 15:25] LABS: Glucose - Point of Care 119 mg/dl (70-99)
[2024-08-10 15:48] LABS: Triglycerides 1386 mg/dl (10-149)
[2024-08-10 16:27] LABS: Glucose - Point of Care 91 mg/dl (70-99)
[2024-08-10] MEDS: LIPITOR 40 MG PO (17:16)
[2024-08-10] MEDS: LOVENOX 40 MG SC (17:16)
[2024-08-10 17:30] LABS: Glucose - Point of Care 80 mg/dl (70-99)
[2024-08-10 18:16] LABS: Glucose - Point of Care 160 mg/dl (70-99)
[2024-08-10 19:13] LABS: Glucose - Point of Care 139 mg/dl (70-99)
[2024-08-10] MEDS: TRICOR 48 MG PO (20:06)
[2024-08-10 20:12] LABS: Glucose - Point of Care 118 mg/dl (70-99)
[2024-08-10 20:28] LABS: Blood Urea Nitrogen 2 mg/dl (9-20); Carbon Dioxide 26 mmol/L (22-30); Chloride 101 mmol/L (98-107); Estimated Creatinine Clearance > 125 ml/min; Glucose 116 mg/dl (70-99); Potassium 3.8 mmol/L (3.5-5.1); Sodium 135 mmol/L (135-145); eGFR > 60.00
[2024-08-10 20:29] LABS: Blood Urea Nitrogen 4 mg/dl (9-20); Calcium 8.6 mg/dl (8.4-10.2); Carbon Dioxide 21 mmol/L (22-30); Chloride 103 mmol/L (98-107); Estimated Creatinine Clearance > 125 ml/min; Glucose 119 mg/dl (70-99); Sodium 136 mmol/L (135-145); eGFR > 60.00
--- NOTE | 2024-08-10 20:51 | PTCARENOTE ---
received patient from previous RN. Patient is Aox3 and on RA sating at 95%. Patient on insulin gtt at 7 units, Q1 glucose checks. NSR on monitor. Patient resting in bed with family at bedside. Call salamanca in reach. care ongoing
[2024-08-10 21:14] LABS: Glucose - Point of Care 83 mg/dl (70-99)
[2024-08-10] MEDS: KCL IV (21:30)
[2024-08-10 22:14] LABS: Glucose - Point of Care 120 mg/dl (70-99)
[2024-08-10 23:30] LABS: Glucose - Point of Care 67 mg/dl (70-99)
[2024-08-11] VITALS (11 sets, daily range): BP systolic 103–119; BP diastolic 50–74
[2024-08-11 00:14] LABS: Glucose - Point of Care 108 mg/dl (70-99)
[2024-08-11 00:41] LABS: Blood Urea Nitrogen < 2 mg/dl (9-20); Calcium 8.7 mg/dl (8.4-10.2); Carbon Dioxide 24 mmol/L (22-30); Chloride 101 mmol/L (98-107); Estimated Creatinine Clearance > 125 ml/min; Glucose 109 mg/dl (70-99); Potassium 3.9 mmol/L (3.5-5.1); Sodium 136 mmol/L (135-145); Triglycerides 1156 mg/dl (10-149); eGFR > 60.00
[2024-08-11 01:34] LABS: Glucose - Point of Care 73 mg/dl (70-99)
[2024-08-11 02:29] LABS: Glucose - Point of Care 115 mg/dl (70-99)
[2024-08-11 03:20] LABS: Glucose - Point of Care 103 mg/dl (70-99)
[2024-08-11] MEDS: KCL 1010 MEQ IV ×3 (04:21→23:10)
[2024-08-11 04:23] LABS: Glucose - Point of Care 96 mg/dl (70-99)
[2024-08-11 04:40] LABS: % Basophils 0.3 % (0-2); % Immature Granulocytes 0.1 % (0-0.5); % Monocytes 6.4 % (1.7-9.3); % Neutrophils 68.2 % (42.2-75.2); Absolute Eosinophils 0.1 10^3/uL (0-0.7); Absolute Lymphocytes 1.6 10^3/uL (1.2-3.4); Absolute Monocytes 0.4 10^3/uL (0.1-0.6); Absolute Neutrophils 4.7 10^3/uL (1.4-6.5); Hematocrit 35.1 % (39.0-52.0); Hemoglobin 12.3 g/dL (13.0-18.0); Mean Corpuscular Hgb 30.3 pg (27.0-31.0); Mean Corpuscular Volume 86.5 fL (80.0-94.0); Mean Platelet Volume 11.3 fL (7.4-10.4); Nucleated Red Blood Cells % 0 % (-); Platelet Count 169 10^3/uL (130-400); Red Blood Cell Count 4.06 10^6/uL (4.70-6.10); Red Cell Dist. Width 13.3 % (11.5-14.5); White Blood Cell Count 6.9 10^3/uL (4.8-10.8)
[2024-08-11 05:03] LABS: Blood Urea Nitrogen 2 mg/dl (9-20); Calcium 8.8 mg/dl (8.4-10.2); Carbon Dioxide 28 mmol/L (22-30); Chloride 102 mmol/L (98-107); Estimated Creatinine Clearance > 125 ml/min; Glucose 93 mg/dl (70-99); Potassium 3.8 mmol/L (3.5-5.1); Sodium 138 mmol/L (135-145); eGFR > 60.00
[2024-08-11 05:08] LABS: ALT (SGPT) 13 U/L (0-50); AST (SGOT) 15 U/L (17-59); Albumin 3.5 g/dl (3.5-5.0); Alkaline Phosphatase 72 U/L (38-126); Blood Urea Nitrogen 2 mg/dl (9-20); Calcium 8.9 mg/dl (8.4-10.2); Carbon Dioxide 28 mmol/L (22-30); Chloride 103 mmol/L (98-107); Estimated Creatinine Clearance > 125 ml/min; Glucose 94 mg/dl (70-99); Potassium 3.7 mmol/L (3.5-5.1); Sodium 137 mmol/L (135-145); Total Bilirubin 0.4 mg/dl (0.2-1.3); Total Protein 6.4 g/dl (6.3-8.2); eGFR > 60.00
[2024-08-11 05:13] LABS: Glucose - Point of Care 75 mg/dl (70-99)
[2024-08-11] MEDS: TORADOL 15 MG IV (05:13)
[2024-08-11 06:25] LABS: Glucose - Point of Care 99 mg/dl (70-99)
[2024-08-11 07:21] LABS: Glucose - Point of Care 70 mg/dl (70-99)
[2024-08-11 08:12] LABS: Glucose - Point of Care 96 mg/dl (70-99)
[2024-08-11 08:53] LABS: Blood Urea Nitrogen < 2 mg/dl (9-20); Calcium 8.7 mg/dl (8.4-10.2); Carbon Dioxide 26 mmol/L (22-30); Chloride 102 mmol/L (98-107); Estimated Creatinine Clearance > 125 ml/min; Glucose 94 mg/dl (70-99); Potassium 3.7 mmol/L (3.5-5.1); Sodium 138 mmol/L (135-145); eGFR > 60.00
--- NOTE | 2024-08-11 08:59 | PN.DE.MGMTRT ---
Insulin Management
- -
08/11/2024: Diabetes Management Consult
39 year old male who presented to the ED with RUQ abdominal pain x1 day. CT abdomen/pelvis with IV only suggestive of pancreatitis/fatty liver
PMH: T2DM, state she was taking Metformin but stopped taking it due lack of insurance and affordability issues.
He was noted for DKA with TG of 2625, A1C 12.8% on admission and was started on DKA Protocol.
He remains on continuos insulin infusion at 7 units/hr, Glucose stable in range of 83 to 103.
He is currently on clear liquid diet with plans to start full liquid diet.
recent lab work shows TG level remains >500, plan to continue IV insulin drip for TG goal <500
Will cont to follow and reassess for readiness to transition off drip to SQ inulin
SQ insulin of choice is 70/30, discussed with pt and he was agreeable with mixture insulin due to cost.
Diabetes History
- -
Type of Diabetes: 2 requiring insulin
Pre-Admission Diabetes Regimen
08/10/24 08/10/24 08/10/24
08:09 12:27 15:14
Creatinine 0.4 L Cancelled 0.4 L
08/10/24 08/10/24 08/11/24
15:14 20:07 00:08
Creatinine Cancelled 0.4 L 0.4 L
08/11/24 08/11/24 08/11/24
04:11 04:11 08:00
Creatinine 0.4 L 0.4 L 0.4 L
Lab Results
Hemoglobin A1c 12.8 % (4.0-5.6) H 08/09/24 05:43
Insulin Pump Settings
IP Diabetes Regimen
08/10/24 08/10/24 08/10/24
01:05 08:09 09:02
Glucose 66 L
POC Glucose 88 150 H
08/10/24 08/10/24 08/10/24
10:03 11:07 12:04
Glucose
POC Glucose 223 H 134 H 86
08/10/24 08/10/24 08/10/24
12:27 13:06 14:02
Glucose Cancelled
POC Glucose 76 84
08/10/24 08/10/24 08/10/24
15:13 15:14 15:14
Glucose 119 H Cancelled
POC Glucose 119 H
08/10/24 08/10/24 08/10/24
16:16 17:19 18:02
Glucose
POC Glucose 91 80 160 H
08/10/24 08/10/24 08/10/24
19:02 20:01 20:07
Glucose 116 H
POC Glucose 139 H 118 H
08/10/24 08/10/24 08/10/24
21:03 22:03 23:18
Glucose
POC Glucose 83 120 H 67 L
08/10/24 08/11/24 08/11/24
23:59 00:08 01:22
Glucose 109 H
POC Glucose 108 H 73
08/11/24 08/11/24 08/11/24
02:16 03:08 04:05
Glucose
POC Glucose 115 H 103 H 96
08/11/24 08/11/24 08/11/24
04:11 04:11 05:02
Glucose 94 93
POC Glucose 75
08/11/24 08/11/24 08/11/24
06:13 07:05 07:57
Glucose
POC Glucose 99 70 96
08/11/24
08:00
Glucose 94
POC Glucose
Meal type: Breakfast
Patient Education
[2024-08-11 09:08] LABS: Triglycerides 1064 mg/dl (10-149)
[2024-08-11 09:11] LABS: Glucose - Point of Care 73 mg/dl (70-99)
[2024-08-11 10:15] LABS: Glucose - Point of Care 250 mg/dl (70-99)
--- NOTE | 2024-08-11 10:58 | W.PN.GI.CBS2 ---
Today's Communication / Plan
-
full liquid diet. Advance as tolerated to low-fat diet
Assessment / Plan
-
39-year-old male with history of diabetes currently not on any medication is admitted with right upper quadrant abdominal pain for 1 day.
-- Acute pancreatitis-secondary to hypertriglyceridemia ( TG > 2625 ). First episode. ( No ETOH/ LFT normal / Imaging no biliary dilatation )
-- DM/ DKA ( not on Rx for DM because of no insurance). HbA1C 12.3
-- Fatty liver - likely secondary to MASH
plan
Clinically doing well .full liquid diet today. If tolerating okay to advance as tolerated to low-fat diet
Continue insulin drip until triglyceride < 500. Triglyceride this a.m. 1064
Pain management as per medical team
Pharmacological treatment for triglyceridemia to be initiated once patient can tolerate oral intake
Discussed with patient that patient needs to be on dietary fat restriction and pharmacological treatment for triglyceridemia in the future to prevent recurrence of pancreatitis
Patient requires follow-up with PCP on discharge for management of diabetes/hyperlipidemia - medical team/ social media strategist to arrange follow up
No further recommendation at this point. Will sign off. Please call us back if any questions
Total Time Spent with Patient (in minutes): 35
Subjective
Subjective
Date of Service: August 11, 2024
Feeling better. Tolerating liquid diet.
Objective
Data Reviewed
Laboratory Data:
Laboratory Results
08/11/24 04:11
Laboratory Results
Phosphorus Cancelled 08/10/24 12:27
Total Bilirubin 0.4 mg/dl (0.2-1.3) 08/11/24 04:11
AST 15 U/L (17-59) L 08/11/24 04:11
ALT 13 U/L (0-50) 08/11/24 04:11
Alkaline Phosphatase 72 U/L (38-126) 08/11/24 04:11
Lipase 451 U/L (23-300) H 08/08/24 23:40
Vital Signs and I&O:
Vital Signs
Temp Pulse Resp BP Pulse Ox
99.0 F 94 12 111/50 96
08/11/24 07:36 08/11/24 04:00 08/11/24 04:00 08/11/24 04:00 08/11/24 08:30
I&O
08/10/24 08/11/24 08/12/24
06:59 06:59 06:59
Intake Total 800 / 800 480 / 480
Balance 800 / 800 480 / 480
Physical Exam
Physical Exam
GI: Soft, Non Distended and Non Tender
--- NOTE | 2024-08-11 11:13 | W.PN.HOSP.TC ---
Today's Communication/Plan
-
Continue IV insulin drip for TG goal <500
Advance diet as tolerated
D5LR with KCl supplement
BMP Q4 and TG level Q8
Avoid hypoglycemia, hypokalemia, hypophosphatemia
Assessment / Plan
Assessment / Plan
#Acute pancreatitis
#Hypertriglyceridemia
-Presented with abdomen pain, elevated lipase, CT with signs of pancreatitis, TG >2000
-Unclear cause for his elevated TG level, denies alcohol use, denies family history of high cholesterol
-Has remained hemodynamically stable, relatively low modified Remigio score
-No signs of biliary disease or gallstones on imaging, without obstructive pattern
-TG improving on insulin drip, down to the low 1000's with improving symptoms
-Currently on D5 LR with KCl additive, potassium and phosphorus 7 stay
-GI signed off
Plan
-Continue insulin drip with plan to discontinue when TG <500
-Continue to trend BMP Q4, TG Q8 while on insulin drip
-Continue D5 LR with KCl additive
-Hematocrit goal <44%, trend BUN
-Continue statin and start fenofibrate
-Advance diet as tolerated
#Mild DKA
#H/O NIDDM
-No recent A1c; no history of microvascular disease states
-Home medications included metformin twice daily, nonadherent due to no insurance
-Presented with hyperglycemia, AGMA, elevated BHB consistent with mild DKA versus HHS
-Blood sugars have improved on insulin drip, have been as low as 70 though normally at goal
-Hemoglobin A1c returned at 12.3%, DM team consulted
Plan
-Continue with insulin drip as above
-Transition to Lantus 15 units QD, NovoLog 5 units AC with ISS after drip
-Plan to resume metformin +/- additional agents
-Statin as above for ASCVD prevention
-Carb controlled diet when off drip
-Plan OP microalbumin/creatinine, retinal exam, foot exam
DVT prophylaxis: Lovenox
Diet: CLD, ADAT
CODE STATUS: Full
Anticipated Discharge: 24 - 48 hours
Subjective/Interval History
-
Date of Service: August 11, 2024
Seen and examined at the bedside. No acute events reported overnight. AFVSS this morning
Remains on IV insulin drip with triglycerides down to near 1000. Goal remains <500 prior to taking off the drip
His symptoms continue to improve, minimal abdomen pain today. Denies nausea or vomiting. Has tolerated advances into diet
Denies any new complaint
Objective Data
-
Labs:
Laboratory Results
08/11/24 08/11/24 08/11/24
00:08 04:11 04:11
WBC 6.9
Hgb 12.3 L
Hct 35.1 L
Plt Count 169
Sodium 136 137 138
Potassium 3.9 3.7
Chloride 101
Carbon Dioxide 24
BUN < 2 L
Creatinine 0.4 L
Glucose 109 H
Calcium 8.7
Total Bilirubin
AST
ALT
Alkaline Phosphatase
08/11/24 08/11/24 08/11/24
04:11 04:11 04:11
WBC
Hgb
Hct
Plt Count
Sodium
Potassium 3.8
Chloride 103 102
Carbon Dioxide 28 28
BUN 2 L
Creatinine
Glucose
Calcium
Total Bilirubin
AST
ALT
Alkaline Phosphatase
08/11/24 08/11/24 08/11/24
04:11 04:11 04:11
WBC
Hgb
Hct
Plt Count
Sodium
Potassium
Chloride
Carbon Dioxide
BUN 2 L
Creatinine 0.4 L 0.4 L
Glucose 94 93
Calcium 8.9
Total Bilirubin
AST
ALT
Alkaline Phosphatase
08/11/24 08/11/24 08/11/24
04:11 08:00 12:00
WBC
Hgb
Hct
Plt Count
Sodium 138 Pending
Potassium 3.7 Pending
Chloride 102 Pending
Carbon Dioxide 26 Pending
BUN < 2 L Pending
Creatinine 0.4 L Pending
Glucose 94 Pending
Calcium 8.8 8.7 Pending
Total Bilirubin 0.4
AST 15 L
ALT 13
Alkaline Phosphatase 72
08/11/24
16:00
WBC
Hgb
Hct
Plt Count
Sodium Pending
Potassium Pending
Chloride Pending
Carbon Dioxide Pending
BUN Pending
Creatinine Pending
Glucose Pending
Calcium Pending
Total Bilirubin
AST
ALT
Alkaline Phosphatase
Vital Signs:
Vital Signs
Temp Pulse Resp BP Pulse Ox
99.0 F 87 20 110/64 93
08/11/24 07:36 08/11/24 11:00 08/11/24 11:00 08/11/24 10:00 08/11/24 11:00
I&O
08/10/24 08/11/24 08/12/24
06:59 06:59 06:59
Intake Total 800 / 800 480 / 480
Balance 800 / 800 480 / 480
Review of Systems
-
History Source: Patient
All other systems: Reviewed and negative
Physical Exam
-
General: Well Developed, Well Nourished, No Apparent Distress and Comfortable
HEENT: Normocephalic, Atraumatic, Moist Mucous Membranes and Anicteric
Respiratory: Clear to Auscultation and Non Labored Respirations
Cardiac: Regular Rhythm and S1/S2; Negative Murmur, Rub, Gallop or Tachycardic
GI: Soft, Nondistended, Normal Bowel Sounds and Tender (Very mild epigastric tenderness without peritoneal signs)
Musculoskeletal: No Clubbing, No Cyanosis and No Edema
Skin: Warm, Dry and Normal Turgor; Negative Rash
Neuro: AO x 3 and Nonfocal/Grossly Intact; Negative Tremors
Psych: Calm
Data Reviewed
-
Labs: Labs Reviewed by me, Discussed with Patient and Discussed with Family
[2024-08-11 11:16] LABS: Glucose - Point of Care 198 mg/dl (70-99)
--- NOTE | 2024-08-11 12:05 | PTCARENOTE ---
Pt presents as assessed. Aox3. Insulin gtt infusing at 7units/hr per order. Q1 accuchecks and scheduled labwork obtained. IVF infusing as ordered. Care as documented. Call salamanca within reach; able to make needs known.
[2024-08-11 12:21] LABS: Glucose - Point of Care 175 mg/dl (70-99)
[2024-08-11] MEDS: NOVOLIN R INSULIN INFUSION 100 IV (12:24)
[2024-08-11 13:09] LABS: Glucose - Point of Care 127 mg/dl (70-99)
[2024-08-11 13:53] LABS: Blood Urea Nitrogen 3 mg/dl (9-20); Calcium 8.5 mg/dl (8.4-10.2); Carbon Dioxide 28 mmol/L (22-30); Chloride 102 mmol/L (98-107); Estimated Creatinine Clearance > 125 ml/min; Glucose 115 mg/dl (70-99); Potassium 3.9 mmol/L (3.5-5.1); Sodium 137 mmol/L (135-145); eGFR > 60.00
[2024-08-11 14:07] LABS: Glucose - Point of Care 94 mg/dl (70-99)
[2024-08-11 15:21] LABS: Glucose - Point of Care 207 mg/dl (70-99)
[2024-08-11 16:11] LABS: Glucose - Point of Care 145 mg/dl (70-99)
[2024-08-11 16:33] LABS: Blood Urea Nitrogen 2 mg/dl (9-20); Calcium 8.7 mg/dl (8.4-10.2); Carbon Dioxide 26 mmol/L (22-30); Chloride 101 mmol/L (98-107); Estimated Creatinine Clearance > 125 ml/min; Glucose 157 mg/dl (70-99); Phosphorus 4.8 mg/dl (2.5-4.5); Potassium 3.9 mmol/L (3.5-5.1); Sodium 136 mmol/L (135-145); eGFR > 60.00
[2024-08-11 16:42] LABS: Triglycerides 935 mg/dl (10-149)
[2024-08-11 17:24] LABS: Glucose - Point of Care 95 mg/dl (70-99)
[2024-08-11] MEDS: LOVENOX 40 MG SC (18:12)
[2024-08-11] MEDS: LIPITOR 40 MG PO (18:12)
[2024-08-11 18:43] LABS: Glucose - Point of Care 71 mg/dl (70-99)
[2024-08-11 19:13] LABS: Glucose - Point of Care 149 mg/dl (70-99)
[2024-08-11 20:19] LABS: Glucose - Point of Care 99 mg/dl (70-99)
[2024-08-11 20:42] LABS: Blood Urea Nitrogen < 2 mg/dl (9-20); Calcium 8.7 mg/dl (8.4-10.2); Carbon Dioxide 22 mmol/L (22-30); Chloride 103 mmol/L (98-107); Estimated Creatinine Clearance > 125 ml/min; Glucose 95 mg/dl (70-99); Phosphorus 4.5 mg/dl (2.5-4.5); Potassium 4.1 mmol/L (3.5-5.1); Sodium 136 mmol/L (135-145); eGFR > 60.00
[2024-08-11 21:02] LABS: Glucose - Point of Care 82 mg/dl (70-99)
[2024-08-11] MEDS: TRICOR 145 MG PO (21:49)
[2024-08-11] MEDS: KCL IV ×4 (21:57→23:09)
[2024-08-11 22:03] LABS: Glucose - Point of Care 82 mg/dl (70-99)
--- NOTE | 2024-08-11 22:04 | PTCARENOTE ---
assumed care of patient from previous RN. Patient on insulin gtt at 7 units/hr per order. Q1 accuchecks, Q4 hour lab draws per order. Patient pleasant and Aox3. Assessment and VS as documented. Patient resting in bed with family at bedside. Call
salamanca in reach.
[2024-08-11 23:17] LABS: Glucose - Point of Care 102 mg/dl (70-99)
[2024-08-12] VITALS (12 sets, daily range): BP systolic 107–121; BP diastolic 70–81; BMI 28.4
[2024-08-12 00:21] LABS: Glucose - Point of Care 80 mg/dl (70-99)
[2024-08-12 01:04] LABS: Glucose - Point of Care 98 mg/dl (70-99)
[2024-08-12] MEDS: NOVOLIN R INSULIN INFUSION 100 IV ×2 (01:56→17:10)
[2024-08-12 02:04] LABS: Glucose - Point of Care 83 mg/dl (70-99)
[2024-08-12 03:15] LABS: Glucose - Point of Care 126 mg/dl (70-99)
[2024-08-12 03:35] LABS: % Basophils 0.5 % (0-2); % Eosinophils 2.3 % (0-6); % Immature Granulocytes 0.3 % (0-0.5); % Lymphocytes 21.7 % (20.5-51.1); % Monocytes 6.3 % (1.7-9.3); % Neutrophils 68.9 % (42.2-75.2); Absolute Eosinophils 0.1 10^3/uL (0-0.7); Absolute Lymphocytes 1.3 10^3/uL (1.2-3.4); Absolute Monocytes 0.4 10^3/uL (0.1-0.6); Absolute Neutrophils 4.1 10^3/uL (1.4-6.5); Hematocrit 33.7 % (39.0-52.0); Mean Corp Hgb Conc. 35.6 g/dL (33.0-37.0); Mean Corpuscular Hgb 30.2 pg (27.0-31.0); Mean Corpuscular Volume 84.7 fL (80.0-94.0); Nucleated Red Blood Cells % 0 % (-); Red Blood Cell Count 3.98 10^6/uL (4.70-6.10); Red Cell Dist. Width 13.2 % (11.5-14.5)
[2024-08-12 03:57] LABS: Phosphorus 4.8 mg/dl (2.5-4.5)
[2024-08-12 04:19] LABS: Glucose - Point of Care 98 mg/dl (70-99)
[2024-08-12 04:37] LABS: Triglycerides 818 mg/dl (10-149)
[2024-08-12] MEDS: KCL 1010 MEQ IV ×4 (04:43→23:56)
[2024-08-12 05:14] LABS: Glucose - Point of Care 80 mg/dl (70-99)
[2024-08-12 05:33] LABS: Mean Platelet Volume 10.7 fL (7.4-10.4)
[2024-08-12 05:34] LABS: Platelet Count 150 10^3/uL (130-400)
[2024-08-12 06:11] LABS: Glucose - Point of Care 68 mg/dl (70-99)
[2024-08-12 07:08] LABS: Glucose - Point of Care 99 mg/dl (70-99)
--- NOTE | 2024-08-12 07:46 | PN.DE.MGMTRT ---
Insulin Management
- -
08/12/2024: Diabetes Management follow up
39 year old male who presented to the ED with RUQ abdominal pain x1 day. CT abdomen/pelvis with IV only suggestive of pancreatitis/fatty liver
PMH: T2DM, state she was taking Metformin but stopped taking it due lack of insurance and affordability issues.
He was noted for DKA with TG of 2625, A1C 12.8% on admission and was started on DKA Protocol.
He remains on continuos insulin infusion at 7 units/hr, Glucose stable in range of 68 to 126, with some episodes of Hypoglycemia.
[place] labs show TG level trending down to 818. 8AM labs show TG of 742, plan to continue IV insulin drip for TG goal <500
Will cont to follow and reassess for readiness to transition off drip to SQ inulin preferably when TG<500
Discussed with pt and Nurse plan of care at discharge. He will need SQ insulin, 70/30 is the preferred insulin since he has no insurance.
Recs: Will start 70/30 at dinner if TG <500 and pt is ready to transition off drip to SQ insulin. Give 40 units of 70/30 and then BID thereafter.
Pt was instructed to get his scripts filled at [facility], where the 70/30 insulin is ~$62/5 pens, Metformin is $3 /month and to get the [employer] ReliOn glucose monitor for $29.99
Provided insulin instructions and printout sheet with step by step instructions of insulin pen needle use.
Had a lengthy discussion with pt regrading diabetes mgt at home. Discussed intense lifestyle modification include healthy eating, exercise, consistent self blood glucose monitoring and taking his medications as prescribed.
Pt states he [facility] for [facility] and [facility], his 1st appointment is scheduled for 09/15.
Diabetes History
- -
Type of Diabetes: 2 requiring insulin
Pre-Admission Diabetes Regimen
08/11/24 08/11/24 08/11/24
08:00 12:09 13:14
Creatinine 0.4 L Cancelled 0.4 L
08/11/24 08/11/24
16:04 20:14
Creatinine 0.5 L 0.4 L
Lab Results
Hemoglobin A1c 12.8 % (4.0-5.6) H 08/09/24 05:43
Insulin Pump Settings
IP Diabetes Regimen
08/11/24 08/11/24 08/11/24
07:57 08:00 09:00
Glucose 94
POC Glucose 96 73
08/11/24 08/11/24 08/11/24
10:03 11:04 12:07
Glucose
POC Glucose 250 H 198 H 175 H
08/11/24 08/11/24 08/11/24
12:09 12:57 13:14
Glucose Cancelled 115 H
POC Glucose 127 H
08/11/24 08/11/24 08/11/24
13:55 15:10 16:00
Glucose
POC Glucose 94 207 H 145 H
08/11/24 08/11/24 08/11/24
16:04 17:13 18:32
Glucose 157 H
POC Glucose 95 71
08/11/24 08/11/24 08/11/24
19:00 20:08 20:14
Glucose 95
POC Glucose 149 H 99
08/11/24 08/11/24 08/11/24
20:51 21:51 23:05
Glucose
POC Glucose 82 82 102 H
08/12/24 08/12/24 08/12/24
00:05 00:53 01:52
Glucose
POC Glucose 80 98 83
08/12/24 08/12/24 08/12/24
03:03 04:08 05:03
Glucose
POC Glucose 126 H 98 80
08/12/24 08/12/24
06:00 06:57
Glucose
POC Glucose 68 L 99
Meal type: Breakfast
Amount consumed: 100%
Patient Education
[2024-08-12 08:11] LABS: Glucose - Point of Care 73 mg/dl (70-99)
[2024-08-12 08:30] LABS: Blood Urea Nitrogen < 2 mg/dl (9-20); Calcium 8.5 mg/dl (8.4-10.2); Carbon Dioxide 31 mmol/L (22-30); Chloride 102 mmol/L (98-107); Estimated Creatinine Clearance > 125 ml/min; Glucose 70 mg/dl (70-99); Phosphorus 5.3 mg/dl (2.5-4.5); Potassium 3.9 mmol/L (3.5-5.1); Sodium 140 mmol/L (135-145); eGFR > 60.00
[2024-08-12 08:38] LABS: Triglycerides 742 mg/dl (10-149)
[2024-08-12 09:18] LABS: Glucose - Point of Care 81 mg/dl (70-99)
--- NOTE | 2024-08-12 09:38 | PTCARENOTE ---
Assumed care of patient this morning. Met with patient and his spouse this morning, no complaints. He denies any pain currently. Pt ate 100% of a full liquid breakfast. Triglycerides slowly trending down, BMP Q4 maintained this morning. Assessment,
care and VS as charted.
[2024-08-12 10:15] LABS: Glucose - Point of Care 140 mg/dl (70-99)
--- NOTE | 2024-08-12 10:32 | W.PN.HOSP.TC ---
Today's Communication/Plan
-
Continue Insulin drip
Assessment / Plan
Assessment / Plan
Impression -
39yo M with PMHX significant for diabetes meddlitus type 2, non compliant with medications secondary to insurance issues presents to the hospital with headache, abdominal pain and nausea - Diagnosed with DKA, and acute pancreatitis.
Plan -
Acute pancreatitis -
secondary to hypertriglyceridemia. TG >2500
Unclear etiology, no family history except a maternal aunt having high cholesterol levels.
Continue Insulin drip with D5, LR and Kcl. Most recent triglyceride at 625.
Trend BMP, triglycerides and blood sugars. Goal triglycerides <500.
Presenting symptoms include abdominal pain, nausea, and headache.
Elevated lipase at 450 upon presentation, USG abdomen has no evidence for gall stones.
GI initially consulted, currently signed off.
Advance diet as tolerated.
DKA -
Mild upon presentation, Co2 - 16, anion gap at 18, Beta hydroxybutyrate at 1.30 along with hyperglycemia.
Currently resolved. HbA1C at 12.3%,
Home medications include metformin BID, non compliant secondary to insurance coverage issues.
DM nurse surface water manager on board. Currently on insulin drip.
Plan to switch to basal bolus regimen once insulin drip discontinued.
Carbohydrate controlled diet.
Statin therapy is reasonable at 39y for this patient given his history of long standing NIDDM.
Hyperphosphatemia -
Likely secondary to phosphorus repletion.
Hold phosphorus repletion.
DVT prophylaxis -
Lovenox
Code status -
Full Code
Anticipated Discharge: 24 - 48 hours
Subjective/Interval History
-
Date of Service: August 12, 2024
Patient reports that his headache resolved, and is abdominal pain improved to 4/10
Objective Data
-
Labs:
Laboratory Results
08/12/24 08/12/24 08/12/24
03:19 08:02 12:00
WBC 6.0
Hgb 12.0 L
Hct 33.7 L
Plt Count 150
Sodium 140 Pending
Potassium 3.9 Pending
Chloride 102 Pending
Carbon Dioxide 31 H Pending
BUN < 2 L Pending
Creatinine 0.5 L Pending
Glucose 70 Pending
Calcium 8.5 Pending
08/12/24 08/12/24
15:59 20:00
WBC
Hgb
Hct
Plt Count
Sodium Pending Pending
Potassium Pending Pending
Chloride Pending Pending
Carbon Dioxide Pending Pending
BUN Pending Pending
Creatinine Pending Pending
Glucose Pending Pending
Calcium Pending Pending
Vital Signs:
Vital Signs
Temp Pulse Resp BP Pulse Ox
98.3 F 85 19 117/71 97
08/12/24 08:09 08/12/24 09:00 08/12/24 09:00 08/12/24 08:02 08/12/24 09:27
I&O
08/11/24 08/12/24 08/13/24
06:59 06:59 06:59
Intake Total 480 / 480 120 / 120
Balance 480 / 480 120 / 120
Review of Systems
-
History Source: Patient
Constitutional: Reports Fatigue
EENT: Reports No Symptoms Reported
Respiratory: Reports No Symptoms
Cardiac: Reports No Symptoms
Abdomen/GI: Reports Abdominal Pain and Nausea (resolved)
Breast: Reports No Symptoms
Genitourinary: Reports No Symptoms
Musculoskeletal: Reports No Symptoms
Skin: Reports Rash (bumps on large joint and scalp)
Neuro: Reports No Symptoms
Endocrine: Reports No Symptoms
Hematologic / Lymphatic: Reports No Symptoms
Allergy / Immunology: Reports No Symptoms
Physical Exam
-
General: Well Developed, Well Nourished and No Apparent Distress (on room air)
HEENT: Moist Mucous Membranes and Pharyngeal Erythema (no)
Respiratory: Clear to Auscultation and Other (No wheezes, rales and ronchi)
Cardiac: Regular Rhythm, S1/S2 and Other (No murmurs, rubs or gallops)
GI: Soft, Nontender, Nondistended, Normal Bowel Sounds and Other (No skin color changes on abdomen or flanks)
Genito-urinary: No Costovertebral Tender
Musculoskeletal: No Clubbing, No Cyanosis and No Edema
Skin: Warm and Lesions (xanthomas noted on ventral surface of elbows, and dorsal surface of knees)
Neuro: AO x 3
Psych: Calm
Data Reviewed
-
CT Scan: Image personally visualized and interpreted, Report Reviewed by me and Discussed with Physician
Ultrasound: Image personally visualized and interpreted, Report Reviewed by me and Discussed with Physician
Labs: Labs Reviewed by me and Discussed with Physician
--- NOTE | 2024-08-12 11:01 | CM ---
Addendum entered by Barb Hung 08/12/24 13:56:
Patient seen at bedside. Patient states that he spoke With [facility] yesterday and they indicated that they had accepted him and gave him an appointment 09/15/24 at 3pm. Per paraeducator all medications have been reviewed and should cost
approx 100$ at [facility]. Patient indicated that he does anticipate being able to afford his medications at this time. CM called to Clinic to request appointment to be moved up but had to leave . CM will continue to follow for discharge planning
needs.
Plan; home with follow up to [facility] and medications from [facility] pharmacy
Original Note:
Patient for discharge tomorrow home with follow up at [facility] for medications, [facility] and home with family. CM will continue to follow for discharge planning needs.
Plan; home with referrals to [facility] and [facility] for medications.
[2024-08-12 11:11] LABS: Glucose - Point of Care 114 mg/dl (70-99)
[2024-08-12 12:24] LABS: Glucose - Point of Care 66 mg/dl (70-99)
[2024-08-12 13:03] LABS: Blood Urea Nitrogen 2 mg/dl (9-20); Carbon Dioxide 30 mmol/L (22-30); Chloride 101 mmol/L (98-107); Estimated Creatinine Clearance > 125 ml/min; Glucose 62 mg/dl (70-99); Phosphorus 5.7 mg/dl (2.5-4.5); Potassium 3.9 mmol/L (3.5-5.1); Sodium 137 mmol/L (135-145); eGFR > 60.00
[2024-08-12 13:23] LABS: Glucose - Point of Care 78 mg/dl (70-99)
[2024-08-12 14:13] LABS: Glucose - Point of Care 62 mg/dl (70-99)
[2024-08-12 14:33] LABS: Glucose - Point of Care 88 mg/dl (70-99)
[2024-08-12 15:10] LABS: Glucose - Point of Care 68 mg/dl (70-99)
[2024-08-12 15:28] LABS: Glucose - Point of Care 85 mg/dl (70-99)
[2024-08-12 16:13] LABS: Glucose - Point of Care 146 mg/dl (70-99)
[2024-08-12 16:27] LABS: Potassium 4.4 mmol/L (3.5-5.1)
[2024-08-12 16:28] LABS: Blood Urea Nitrogen < 2 mg/dl (9-20); Calcium 8.7 mg/dl (8.4-10.2); Carbon Dioxide 30 mmol/L (22-30); Chloride 100 mmol/L (98-107); Estimated Creatinine Clearance > 125 ml/min; Glucose 151 mg/dl (70-99); Phosphorus 5.3 mg/dl (2.5-4.5); Sodium 137 mmol/L (135-145); eGFR > 60.00
[2024-08-12 16:40] LABS: Triglycerides 703 mg/dl (10-149)
[2024-08-12] MEDS: NOVOLOG MIX 70/30 FLEXPEN SC (17:03)
[2024-08-12] MEDS: LIPITOR 40 MG PO (17:09)
[2024-08-12] MEDS: LOVENOX 40 MG SC (17:09)
[2024-08-12 17:16] LABS: Glucose - Point of Care 144 mg/dl (70-99)
[2024-08-12 18:22] LABS: Glucose - Point of Care 113 mg/dl (70-99)
[2024-08-12 19:13] LABS: Glucose - Point of Care 139 mg/dl (70-99)
[2024-08-12 20:13] LABS: Glucose - Point of Care 95 mg/dl (70-99)
[2024-08-12 20:29] LABS: Blood Urea Nitrogen < 2 mg/dl (9-20); Carbon Dioxide 29 mmol/L (22-30); Chloride 101 mmol/L (98-107); Estimated Creatinine Clearance > 125 ml/min; Glucose 103 mg/dl (70-99); Phosphorus 4.7 mg/dl (2.5-4.5); Potassium 4.2 mmol/L (3.5-5.1); Sodium 139 mmol/L (135-145); eGFR > 60.00
[2024-08-12 21:08] LABS: Glucose - Point of Care 76 mg/dl (70-99)
[2024-08-12] MEDS: TRICOR 145 MG PO (21:09)
[2024-08-12 22:05] LABS: Glucose - Point of Care 113 mg/dl (70-99)
[2024-08-12 23:09] LABS: Glucose - Point of Care 103 mg/dl (70-99)
[2024-08-13] VITALS (8 sets, daily range): BP systolic 109–128; BP diastolic 69–83
[2024-08-13 00:17] LABS: Glucose - Point of Care 89 mg/dl (70-99)
[2024-08-13 00:38] LABS: Blood Urea Nitrogen < 2 mg/dl (9-20); Carbon Dioxide 31 mmol/L (22-30); Chloride 103 mmol/L (98-107); Estimated Creatinine Clearance > 125 ml/min; Glucose 90 mg/dl (70-99); Phosphorus 5.4 mg/dl (2.5-4.5); Potassium 3.7 mmol/L (3.5-5.1); Sodium 140 mmol/L (135-145); eGFR > 60.00
[2024-08-13 00:50] LABS: Triglycerides 512 mg/dl (10-149)
[2024-08-13 01:08] LABS: Glucose - Point of Care 56 mg/dl (70-99)
[2024-08-13 01:27] LABS: Glucose - Point of Care 81 mg/dl (70-99)
--- NOTE | 2024-08-13 01:39 | PTCARENOTE ---
Pt received at beginning of shift resting in bed. Family at bedside. AAOx3. Understands [place] well. Insulin gtt infusing at 7units/hr as ordered dose. IVF's infusing as ordered. Pt hot to touch, diaphoretic, odor present. BS throughout shift
56-139. Hypoglycemic protocol used x 1 with good relief. Pt washed self up in bathroom. Gown changed. Top linens changed. Q4hr BMP maintained. Triglycerides 512 at midnight. Admits to 4/10 RUQ pain tender on palpation. Rest of assessment as
documented. Using call [place] as needed which remains within reach. Will continue to monitor.
[2024-08-13 02:26] LABS: Glucose - Point of Care 148 mg/dl (70-99)
[2024-08-13 03:25] LABS: Glucose - Point of Care 116 mg/dl (70-99)
[2024-08-13 04:25] LABS: Glucose - Point of Care 102 mg/dl (70-99)
[2024-08-13 05:00] LABS: Blood Urea Nitrogen < 2 mg/dl (9-20); Calcium 8.8 mg/dl (8.4-10.2); Carbon Dioxide 30 mmol/L (22-30); Chloride 102 mmol/L (98-107); Estimated Creatinine Clearance > 125 ml/min; Glucose 108 mg/dl (70-99); Phosphorus 4.7 mg/dl (2.5-4.5); Sodium 139 mmol/L (135-145); eGFR > 60.00
[2024-08-13 05:25] LABS: Glucose - Point of Care 79 mg/dl (70-99)
[2024-08-13 06:25] LABS: Glucose - Point of Care 114 mg/dl (70-99)
[2024-08-13 07:29] LABS: Glucose - Point of Care 93 mg/dl (70-99)
[2024-08-13 08:04] LABS: Glucose - Point of Care 84 mg/dl (70-99)
[2024-08-13 08:47] LABS: Glucose - Point of Care 57 mg/dl (70-99)
[2024-08-13 08:52] LABS: Blood Urea Nitrogen 2 mg/dl (9-20); Calcium 8.8 mg/dl (8.4-10.2); Carbon Dioxide 29 mmol/L (22-30); Chloride 101 mmol/L (98-107); Estimated Creatinine Clearance > 125 ml/min; Glucose 83 mg/dl (70-99); HDL Cholesterol 22 mg/dl; Phosphorus 5.4 mg/dl (2.5-4.5); Potassium 4.1 mmol/L (3.5-5.1); Sodium 138 mmol/L (135-145); eGFR > 60.00
[2024-08-13 08:53] LABS: Triglyceride 490 mg/dl (10-149); Triglycerides 490 mg/dl (10-149)
[2024-08-13 09:01] LABS: Total Cholesterol 378 mg/dl (50-199)
[2024-08-13] MEDS: NOVOLOG MIX 70/30 FLEXPEN 40 UNITS SC (09:11)
[2024-08-13 09:12] LABS: LDL Cholesterol, Direct 105 mg/dl
[2024-08-13 09:24] LABS: Glucose - Point of Care 156 mg/dl (70-99)
[2024-08-13] MEDS: KCL IV (09:45)
--- NOTE | 2024-08-13 10:37 | W.PN.HOSP.TC ---
Addendum entered and electronically signed by Luis Moncada DO 08/13/24 13:52:
Likely discharge, >30 minutes spent on discharge prep work
Original Note:
Today's Communication/Plan
-
Transition to subcutaneous insulin
Accu-Cheks 3 times daily
Likely discharge home with OP follow-up
Will need lipid panel in 1 week to reassess TG and assess for possible underlying primary hypertriglyceridemia
Assessment / Plan
Assessment / Plan
#Acute pancreatitis
#Hypertriglyceridemia
-Presented with abdomen pain, elevated lipase, CT with signs of pancreatitis, TG >2000
-Unclear cause for his elevated TG level, denies alcohol use, denies family history of high cholesterol
-Has remained hemodynamically stable, relatively low modified Remigio score
-No signs of biliary disease or gallstones on imaging, without obstructive pattern
-TGs at 490 this morning, transitioned off of insulin drip and on subcutaneous insulin
-Will need to follow strict carbohydrate controlled and low-fat diet
-Will need to continue with statin and fenofibric acid indefinitely
-Check OP lipid panel in 1 week to assess TG level
#Mild DKA
#H/O NIDDM
-No recent A1c; no history of microvascular disease states
-Home medications included metformin twice daily, nonadherent due to no insurance
-Presented with hyperglycemia, AGMA, elevated BHB consistent with mild DKA versus HHS
-Hemoglobin A1c returned at 12.3%, anion gap closed x 2 on insulin drip
-S/p insulin drip today, transition to 40 units Novolin 70/30
-Continue statin as above for ASCVD risk
-Will need OP follow-up for microalbumin/creatinine, retinal exam, foot exam
DVT prophylaxis: Lovenox
Diet: Low-fat, carb controlled
CODE STATUS: Full
Anticipated Discharge: Within 24 hours
Subjective/Interval History
-
Date of Service: August 13, 2024
Seen and examined at the bedside. No acute events reported overnight. AFVSS this morning
TG level 490, was taken off of insulin drip and transition to NovoLog 70/30 40 units twice daily
Patient has mild abdomen pain that is improving daily, tolerating regular diet. Denies new complaints
Objective Data
-
Labs:
Laboratory Results
08/13/24 08/13/24 08/13/24
00:14 04:15 07:54
Sodium 140 139 138
Potassium 3.7 4.0 4.1
Chloride 103 102 101
Carbon Dioxide 31 H 30 29
BUN < 2 L < 2 L 2 L
Creatinine 0.5 L 0.5 L 0.5 L
Glucose 90 108 H 83
Calcium 9.0 8.8 8.8
Vital Signs:
Vital Signs
Temp Pulse Resp BP Pulse Ox
98.1 F 104 17 113/74 96
08/13/24 07:30 08/13/24 09:00 08/13/24 09:00 08/13/24 08:00 08/13/24 09:45
I&O
08/12/24 08/13/24 08/14/24
06:59 06:59 06:59
Intake Total 5228 / 5228 240 / 240
Balance 5228 / 5228 240 / 240
Review of Systems
-
History Source: Patient
All other systems: Reviewed and negative
Physical Exam
-
General: Well Developed, Well Nourished, No Apparent Distress and Comfortable
HEENT: Normocephalic, Atraumatic, Moist Mucous Membranes and Anicteric
Respiratory: Clear to Auscultation and Non Labored Respirations
Cardiac: Regular Rhythm and S1/S2; Negative Murmur, Rub or Gallop
GI: Soft, Nondistended, Normal Bowel Sounds and Tender (Mild right/epigastric pain, no peritoneal signs)
Musculoskeletal: No Clubbing, No Cyanosis and No Edema
Skin: Warm, Dry and Normal Turgor; Negative Rash or Jaundice
Neuro: AO x 3 and Nonfocal/Grossly Intact; Negative Tremors
Data Reviewed
-
Labs: Labs Reviewed by me, Discussed with Patient and Discussed with Family
[2024-08-13 12:45] LABS: Glucose - Point of Care 122 mg/dl (70-99)
--- NOTE | 2024-08-13 13:49 | W.DCSUMMARY ---
Discharge Summary
Discharge Data
Date of Admission: 08/09/24
Date of Discharge: 08/13/24
-
Pending Results: No
Hospital Course
39-year-old male with type 2 diabetes mellitus, noncompliant with regimen due to lack of insurance coverage. Presented to the hospital with epigastric pain. Elevated lipase >400, CT evidence of acute pancreatitis. Upon initial blood draw was
noted to have milky appearance of plasma suspicious for hypertriglyceridemia. Initial TG level >2600. Labs also showing anion gap metabolic acidosis with mildly elevated beta hydroxybutyrate, blood glucose in the 400s. Was started on IV insulin
drip for treatment of hypertriglyceridemic pancreatitis as well as mild DKA. Anion gap closed quickly however triglyceride level was more resistant to improvement. Maintained on insulin drip with D5 LR and KCl for multiple days while triglycerides
improved to below 500. Was transition to Novolin 70/30 40 units twice daily. Started on high intensity statin and fenofibric acid. Resumed on home metformin regimen as well. Provided equipment for glucometer and testing supplies. Was provided
referral for family medicine residency clinic. Should be assessed in the clinic within a week of discharge. Should have repeat lipid panel within a week to reassess his triglyceride level.
Discharge Plan
-
Patient Disposition: Home (Routine Discharge)
Discharge Diagnosis/Procedures: Acute pancreatitis
Hypertriglyceridemia
Uncontrolled type 2 diabetes
Condition: Fair
Diet: Low Cholesterol and Diabetic, Carb Controlled
Additional Diets: See information packets provided; use online resources for further information
Avoid alcohol consumption as this may worsen your triglycerides
Activity: As tolerated
Driving Restrictions: No driving for 24 hours
Bathing Restrictions: None
Blood Work: Lipid panel in 1 week to reassess triglycerides
Activity Restrictions/Additional Instructions:
Call and schedule follow-up appointment with family physician, referral provided below. Should be seen in their office within 1 week of discharge from hospital
Instructions: Diabetes and diet, Low-fat diet
Referrals:
Janelle Fitzpatrick MD, Resident [Family Practice Resident Year2] - in less than 1 week
NONE,* [Family Provider] -
Additional Discharge Medication Instructions: Take atorvastatin 40 mg nightly indefinitely
Take fenofibrate 145 mg nightly indefinitely
Take Novolin 70/30 insulin 40 units twice daily (with breakfast and dinner)
Continue metformin 500 mg twice daily
Prescriptions:
New
(DME) blood-glucose meter [ReliOn All-In-One Meter] Kit
Qty: 1 0RF
Rx Instructions:
As Directed
(DME) pen needle, diabetic [BD Ultra-Fine Mayte Pen Needle] 32 gauge x 5/32' Needle
Qty: 200 0RF
Rx Instructions:
Pt taking insulin twice a day
Novolin 70-30 FlexPen U-100 100 unit/mL (70-30) Insulin Pen
40 unit SC BID 30 Days Qty: 10 0RF
Rx Instructions:
TAKE TWICE A DAY WITH BREAKFAST AND DINNER
atorvastatin 40 mg Tablet
40 mg PO QPM 30 Days Qty: 30 0RF
fenofibrate nanocrystallized 145 mg Tablet
145 mg PO HS 30 Days Qty: 30 0RF
Continued
metformin 500 mg tablet
500 mg PO BID Qty: 60 0RF
Discharge Orders:
Discharge Patient (As Directed); Ordered 08/13/24
Ordered By: Luis Moncada
Discharge Date and Time
Print Language: BELIZEAN
--- NOTE | 2024-08-13 14:19 | PTCARENOTE ---
Assumed care of patient this morning. Taken off of drips and started on diet this morning. Pt given Insulin SQ, see MAR. Pt ate a full breakfast and lunch. He did c/o of 4/10 pain to his abdomen following breakfast, which he reported to
while he was as the bedside. He has no other complaints. Assessment, care and VS as charted.
[2024-08-13] MEDS: AFLURIA (36 mos+) 2024-2025 FORMULA 0.5 ML IM (15:26)
--- NOTE | 2024-08-13 16:12 | PTCARENOTE ---
Patient discharge instructions given to patient. All questions were answered. Pt's educational packets printed out with discharge. RN also printed out educational packets in Bah[place]ian. Pt's prescriptions were sent to [facility] pharmacy, which was his
pharmacy in the chart. control room supervisor advised to fill prescriptions at [facility]. Pt and both agreed that [facility] was okay, even though pricing may be different there. Patient given paper prescription for lab work. Patient and spouse voicing
understanding of all instructions.
== END 2024-08-13 16:28 | disposition home or self-care (01) | DRG 438 ==
LOC: IMU 04:41
PROVIDERS: ADMITTING PHYSICIAN Internal Medicine; ATTENDING PHYSICIAN Internal Medicine; CONSULT PHYSICIAN Internal Medicine Gastroenterology; EMERGENCY PHYSICIAN Emergency Medicine
DX: K85.80 Other acute pancreatitis without necrosis or infection (principal); E11.10 Type 2 diabetes mellitus with ketoacidosis without coma; E78.1 Pure hyperglyceridemia; K76.0 Fatty (change of) liver, not elsewhere classified; Z91.199 Patient's noncompliance with other medical treatment and regimen due to unspecified reason; Z59.71 Insufficient health insurance coverage; Z79.84 Long term (current) use of oral hypoglycemic drugs; Z79.4 Long term (current) use of insulin
CPT/HCPCS: 74177; 76705; 80048; 80053; 80061; 81003; 81015; 82010; 82248; 82962; 83036; 83690; 83721; 84100; 84132; 84478; 85025; 85027; 87086; 87502; 87811; 90686; 96360; 96361; 99285; G0008; Q9967

== ENCOUNTER → 2024-08-17 08:49 | Outpatient (REF) | payer OTHER, SELFPAY ==
[2024-08-17 09:59] LABS: HDL Cholesterol 27 mg/dl; LDL Cholesterol, Calculated 184 mg/dl; Total Cholesterol 283 mg/dl (50-199); Triglyceride 364 mg/dl (10-149); Very Low Density Lipoprotein 72 mg/dl (0-30)
== END ==
LOC: REG 08:49
PROVIDERS: ATTENDING PHYSICIAN Internal Medicine; REFERRING PHYSICIAN Student in an Organized Health Care Education/Training Program
DX: R10.9 Unspecified abdominal pain (principal)
CPT/HCPCS: 36415; 80061

== ENCOUNTER → 2024-09-17 10:16 | Outpatient (REF) | payer OTHER, SELFPAY ==
[2024-09-17 11:12] LABS: ALT (SGPT) 23 U/L (0-50); AST (SGOT) 18 U/L (17-59); Alkaline Phosphatase 83 U/L (38-126); Blood Urea Nitrogen 17 mg/dl (9-20); Calcium 9.7 mg/dl (8.4-10.2); Carbon Dioxide 27 mmol/L (22-30); Chloride 101 mmol/L (98-107); Glucose 183 mg/dl (70-99); HDL Cholesterol 45 mg/dl; LDL Cholesterol, Calculated 82 mg/dl; Potassium 4.1 mmol/L (3.5-5.1); Sodium 139 mmol/L (135-145); Total Bilirubin 0.8 mg/dl (0.2-1.3); Total Cholesterol 153 mg/dl (50-199); Total Protein 7.8 g/dl (6.3-8.2); Triglyceride 133 mg/dl (10-149); Very Low Density Lipoprotein 26 mg/dl (0-30); eGFR > 60.00
== END ==
LOC: CLINIC 10:16
PROVIDERS: ATTENDING PHYSICIAN Family Medicine
DX: E11.9 Type 2 diabetes mellitus without complications (principal); K85.80 Other acute pancreatitis without necrosis or infection; E78.1 Pure hyperglyceridemia
CPT/HCPCS: 36415; 80053; 80061

== ENCOUNTER → 2024-11-18 09:04 | Outpatient (REF) | payer OTHER, SELFPAY ==
[2024-11-18 13:53] LABS: ALT (SGPT) 28 U/L (0-50); AST (SGOT) 19 U/L (17-59); Albumin 4.9 g/dl (3.5-5.0); Alkaline Phosphatase 103 U/L (38-126); Blood Urea Nitrogen 24 mg/dl (9-20); Calcium 9.5 mg/dl (8.4-10.2); Carbon Dioxide 28 mmol/L (22-30); Chloride 101 mmol/L (98-107); Glucose 236 mg/dl (70-99); HDL Cholesterol 38 mg/dl; LDL Cholesterol, Calculated 59 mg/dl; Sodium 139 mmol/L (135-145); Total Bilirubin 0.5 mg/dl (0.2-1.3); Total Cholesterol 130 mg/dl (50-199); Total Protein 7.6 g/dl (6.3-8.2); Triglyceride 167 mg/dl (10-149); Very Low Density Lipoprotein 33 mg/dl (0-30); eGFR > 60.00
== END ==
LOC: CLINIC 09:04
PROVIDERS: ATTENDING PHYSICIAN Family Medicine
DX: E11.69 Type 2 diabetes mellitus with other specified complication (principal); E78.2 Mixed hyperlipidemia
CPT/HCPCS: 36415; 80053; 80061; 83036

== ENCOUNTER → 2025-02-14 08:46 | Outpatient (REF) | payer OTHER, SELFPAY ==
[2025-02-14 10:35] LABS: ALT (SGPT) 33 U/L (0-50); AST (SGOT) 21 U/L (17-59); Albumin 5.1 g/dl (3.5-5.0); Alkaline Phosphatase 68 U/L (38-126); Blood Urea Nitrogen 11 mg/dl (9-20); Calcium 9.6 mg/dl (8.4-10.2); Carbon Dioxide 27 mmol/L (22-30); Chloride 104 mmol/L (98-107); Glucose 99 mg/dl (70-99); HDL Cholesterol 42 mg/dl; LDL Cholesterol, Calculated 84 mg/dl; Potassium 4.1 mmol/L (3.5-5.1); Sodium 141 mmol/L (135-145); Total Protein 7.9 g/dl (6.3-8.2); Very Low Density Lipoprotein 30 mg/dl (0-30); eGFR > 60.00
[2025-02-14 10:51] LABS: Glycohemoglobin (HgbA1c) 9.0 % (4.0-5.6)
== END ==
LOC: CLINIC 08:46
PROVIDERS: ATTENDING PHYSICIAN Family Medicine
DX: E11.69 Type 2 diabetes mellitus with other specified complication (principal); E78.2 Mixed hyperlipidemia
CPT/HCPCS: 36415; 80053; 80061; 83036